=== PATIENT | male | born 1975 | race African-American/Black ===

== ENCOUNTER 2017-01-24 13:27 | Inpatient (IN) | payer OTHER ==
[2017-01-24 13:56] VITALS: BMI 33.0
--- NOTE | 2017-01-24 16:32 | HP ---
CIWA Score - CIWA Score Nausea/Vomitin Muscle Tremors: 3 Anxiety: 3 Agitation: 3 Paroxysmal Sweats: 2 Orientation: 0-Oriented Tacttile Disturbances: 2-Mild Itch/Numbness/Burn Auditory Disturbances: 2-Mild Harshness/Frighten Visual Disturbances: 1-Very Mild Sensitivity Headache: 2-Mild CIWA-Ar Total Score: 21 Admission ROS BHS - HPI Chief Complaint: i am here to stop drinking alcohol and xanax Allergies/Adverse Reactions: Allergies Allergy/AdvReac Type Severity Reaction Status Date / Time ibuprofen Allergy Intermediate Verified 01/24/17 15:57 Pork/Porcine Containing Allergy Intermediate Verified 01/24/17 15:57 Products History of Present Illness: this 41 years old male with alcohol and xanax dependence,seeking detox,mmtp 100 mgs/day, last medicated today tomorrow has bottle for sun 01/26/17 nicotine dependence longest period of sobriety 9 months last treatment for detox 09/15 arlin Exam Limitations: No Limitations - Ebola screening Have you traveled outside of the country in the last 21 days: No Have you had contact with anyone from an Ebola affected area: No Have you been sick,other than usual withdrawal symptoms: No Do you have a fever: No - Review of Systems Constitutional: Chills, Loss of Appetite, Malaise, Night Sweats, Changes in sleep, Weakness EENT: reports: Nose Congestion Respiratory: reports: No Symptoms reported Cardiac: reports: Palpitations GI: reports: Diarrhea, Nausea, Vomiting, Abdominal cramping : reports: No Symptoms Reported Integumentary: reports: Dryness Neuro: reports: Headache, Tremors Endocrine: reports: No Symptoms Reported Hematology: reports: No Symptoms Reported Psychiatric: reports: No Sypmtoms Reported (insomnia), Mood/Affect Appropiate Patient History - Patient Medical History Hx Anemia: No Hx Asthma: No Hx Chronic Obstructive Pulmonary Disease (COPD): No Hx Cancer: No Hx Cardiac Disorders: No Hx Congestive Heart Failure: No Hx Hypertension: No Hx Hypercholesterolemia: No Hx Pacemaker: No HX Cerebrovascular Accident: No Hx Seizures: No Hx Dementia: No Hx Diabetes: No Hx Gastrointestinal Disorders: Yes (NEXIUM) Hx Liver Disease: No Hx Genitourinary Disorders: No Hx Sexually Transmitted Disorders: No Hx Renal Disease (ESRD): No Hx Thyroid Disease: No Hx Human Immunodeficiency Virus (HIV): No (last 09/15 negative) Hx Hepatitis C: No Hx Depression: Yes (PROZAC) Hx Suicide Attempt: No Hx Bipolar Disorder: Yes (ABILIFY?) Hx Schizophrenia: No Other Medical History: no suicida,no homicidal - Patient Surgical History Past Surgical History: No Hx Neurologic Surgery: No Hx Cataract Extraction: No Hx Cardiac Surgery: No Hx Lung Surgery: No Hx Breast Surgery: No Hx Breast Biopsy: No Hx Abdominal Surgery: No Hx Appendectomy: No Hx Cholecystectomy: No Hx Genitourinary Surgery: No Hx Section: No Hx Orthopedic Surgery: No Anesthesia Reaction: No - PPD History Previous Implant?: Yes Documented Results: Negative w/proof Date: 07/16/15 Results: 0 mm PPD to be Administered?: Yes - Smoking Cessation Smoking history: Current every day smoker Have you smoked in the past 12 months: Yes Aproximately how many cigarettes per day: 10 Hx Chewing Tobacco Use: No Initiated information on smoking cessation: No 'Breaking Loose' booklet given: 01/24/17 - Substance & Tx. History Hx Alcohol Use: Yes Hx Substance Use: Yes Substance Use Type: Alcohol, Heroin, Tranquilizers - Substances Abused Alprazolam (Xanax) Route: Oral Frequency: Daily Amount used: 4mg Age of first use: 21 Date of Last Use: 01/23/17 Heroin Route: Inhalation Frequency: Daily Amount used: 6 bags Age of first use: 36 Date of Last Use: 01/23/17 Alcohol Route: Oral Frequency: Daily Amount used: liquor- 1 pint, beer- 2 32oz Age of first use: 21 Date of Last Use: 01/23/17 Family Disease History - Family Disease History Family Disease History: Diabetes: Grandparent (HTN,ALCOHOLIC), Heart Disease: Grandparent, Other: Grandparent, Father (ALCOHOLIC) Admission Physical Exam BHS - Vital Signs Vital Signs: Vital Signs - 24 hr 01/24/17 13:53 Temperature 98.8 F Pulse Rate 75 Respiratory 18 Rate Blood Pressure 160/106 - Physical General Appearance: Yes: Moderate Distress, Tremorous, Irritable, Sweating, Anxious HEENTM: Yes: Normal ENT Inspection, ELEAZAR, Pharynx Normal Respiratory: Yes: Lungs Clear, Normal Breath Sounds, No Respiratory Distress Neck: Yes: Within Normal Limits, Trachea in good position Breast: Yes: Within Normal Limits Cardiology: Yes: Within Normal Limits, Regular Rhythm, Regular Rate Abdominal: Yes: Within Normal Limits, Normal Bowel Sounds, Non Tender, Flat, Soft Genitourinary: Yes: Within Normal Limits Back: Yes: Muscle Spasm Musculoskeletal: Yes: full range of Motion, Back pain, Joint Stiffness Extremities: Yes: Tremors Neurological: Yes: Within Normal Limits, media center specialist II-XII NML intact, Fully Oriented, Alert, Motor Strength 5/5 Integumentary: Yes: Dry Lymphatic: Yes: Within Normal Limits - Diagnostic (1) Opioid dependence with withdrawal Current Visit: No Status: Acute (2) Uncomplicated sedative, hypnotic or anxiolytic withdrawal Current Visit: No Status: Acute (3) GERD (gastroesophageal reflux disease) Current Visit: No Status: Chronic Qualifiers: Esophagitis presence: without esophagitis Qualified Code(s): K21.9 - Gastro-esophageal reflux disease without esophagitis (4) Nicotine dependence Current Visit: No Status: Chronic Qualifiers: Nicotine product type: cigarettes Substance use status: uncomplicated Qualified Code(s): F17.210 - Nicotine dependence, cigarettes, uncomplicated (5) Methadone maintenance therapy patient Current Visit: Yes Status: Acute (6) Alcohol dependence with uncomplicated withdrawal Current Visit: Yes Status: Acute (7) Bipolar disorder with depression Current Visit: Yes Status: Acute Cleared for Admission S - Detox or Rehab [facility] Level of Care: Medically Managed Detox Regimen/Protocol: Valium [facility] Breath Alcohol Content Breath Alcohol Content: 0 Urine Drug Screen - Results Drug Screen Negative: No Urine Drug Screen Results: OPI-Opiates, BZO-Benzodiazepines, MTD-Methadone
[2017-01-24] MEDS ORDERED: MAG HYDROX/AL HYDROX/SIMETH 30 ML UNIT-DOSE CUP PO PRN (16:44)
[2017-01-24] MEDS ORDERED: MAGNESIUM CITRATE 300 ML BOTTLE PO PRN (16:44)
[2017-01-24] MEDS ORDERED: ACETAMINOPHEN 325 MG TABLET (FP) PO PRN (16:44)
[2017-01-24] MEDS ORDERED: LOPERAMIDE HCL 2 MG CAPSULE PO PRN (16:44)
[2017-01-24] MEDS ORDERED: P-EPHED 60MG/TRIPROLIDI 2.5MG TABLET PO PRN (16:44)
[2017-01-24] MEDS ORDERED: MENTHOL/PHENOL 1 EACH UD MM PRN (16:44)
[2017-01-24] MEDS ORDERED: guaiFENesin/D-METHORPHAN HB 10 ML UNIT-DOSE CUPS PO PRN (16:44)
[2017-01-24] MEDS ORDERED: diazePAM 5 MG TABLET PO ONE (16:44)
[2017-01-24] MEDS ORDERED: MAGNESIUM HYDROX 2400MG/30ML ORAL SUSPENSION 30 ML CUP PO PRN (16:44)
[2017-01-24] MEDS ORDERED: hydrOXYzine PAMOATE 25 MG CAPSULE (FP) PO PRN (16:44)
[2017-01-24] MEDS: NICOTINE 21 MG/24 HOURS TOPICAL PATCH TD SCH (17:58)
[2017-01-24] MEDS: diazePAM 5 MG TABLET PO SCH (22:30)
[2017-01-24] MEDS: THIAMINE HCL 100 MG TABLET (FP) PO SCH (22:30)
[2017-01-24] MEDS: diphenhydrAMINE HCL 50 MG CAPSULE PO PRN (22:30)
[2017-01-24] MEDS: FLUOCINONIDE 0.05% TOP OINT (60 GM TUBE) TP SCH (22:31)
[2017-01-25] MEDS ORDERED: METHADONE HCL 40 MG DISPERSABLE TABLET ONE (05:35)
[2017-01-25] MEDS ORDERED: METHADONE HCL 10 MG TABLET ONE (05:36)
[2017-01-25] MEDS ORDERED: METHADONE HCL 10 MG TABLET PO ONE (06:00)
[2017-01-25] MEDS ORDERED: METHADONE 80 MG, METHADONE 20 MG PO ONE (06:00)
[2017-01-25] MEDS: diazePAM 5 MG TABLET PO SCH ×3 (06:01→22:20)
[2017-01-25] MEDS: FLUOCINONIDE 0.05% TOP OINT (60 GM TUBE) TP SCH ×2 (09:21→22:19)
[2017-01-25 09:58] LABS: MCH 27.3 pg (25.7-33.7); MCHC 32.7 g/dl (32.0-35.9); MEAN CELL VOLUME 83.5 fl (80-96); MEAN PLT VOLUME 8.3 fl (7.5-11.1); PLATELET COUNT 233 K/MM3 (134-434); RDW 14.6 % (11.9-15.9); WHITE BLOOD COUNT 6.7 K/mm3 (4.0-10.0)
[2017-01-25 10:02] LABS: URINE APPEARANCE CLEAR; URINE BILIRUBIN NEGATIVE (NEGATIVE); URINE BLOOD NEGATIVE (NEGATIVE); URINE COLOR LTYELLOW; URINE GLUCOSE (UA) NEGATIVE (NEGATIVE); URINE KETONE NEGATIVE (NEGATIVE); URINE LEUK ESTERASE NEGATIVE (NEGATIVE); URINE NITRITE NEGATIVE (NEGATIVE); URINE PROTEIN NEGATIVE (NEGATIVE); URINE UROBILINOGEN NEGATIVE mg/dL (0.2-1.0)
[2017-01-25 10:27] LABS: ALBUMIN 3.7 g/dl (3.4-5.0); ALK PHOS 57 U/L (45-117); ANION GAP 6 (8-16); BILIRUBIN,TOTAL 0.4 mg/dL (0.2-1.0); CALCIUM 9.1 mg/dL (8.5-10.1); CO2 31 mmol/L (21-32); CREATININE 0.8 mg/dL (0.7-1.3); GLUCOSE,RANDOM 86 mg/dL (74-106); SGOT/AST 23 U/L (15-37); SGPT/ALT 30 U/L (12-78); TOT PROT 7.5 g/dl (6.4-8.2)
[2017-01-25] MEDS: PRENATAL VITAMINS W/ FOLIC ACID TABLET (FP) PO SCH (11:05)
[2017-01-25] MEDS: NICOTINE 21 MG/24 HOURS TOPICAL PATCH TD SCH (11:05)
[2017-01-25] MEDS: diazePAM 5 MG TABLET PO PRN ×2 (11:08→18:46)
--- NOTE | 2017-01-25 12:09 | PN ---
[facility] CIWA - CIWA Score Nausea/Vomitin Muscle Tremors: 3 Anxiety: 3 Agitation: 2 Paroxysmal Sweats: 1-Minimal Palms Moist Orientation: 0-Oriented Tacttile Disturbances: 1-Very Mild Itch/Numbness Auditory Disturbances: 1-Very Mild Visual Disturbances: 1-Very Mild Sensitivity Headache: 2-Mild CIWA-Ar Total Score: 17 S COWS - Scale Anxiety or Irritability: 2=Irritable/Anxious [facility] Progress Note (SOAP) Subjective: ALERT,IRRITABLE,ANXIOUS,INTERRUPTED SLEEP,PAIN IN THE BODY BACK Objective: 01/25/17 12:07 Vital Signs Temperature 97.9 F 01/25/17 10:00 Pulse Rate 80 01/25/17 10:00 Respiratory Rate 20 01/25/17 10:00 Blood Pressure 117/66 01/25/17 10:00 O2 Sat by Pulse Oximetry (%) EKG SINUS BRADYCARDIA 58/MIN,INVERTED T IN V2 AND V3 NO CHEST PAIN,NO SOB Laboratory Last Values WBC 6.7 K/mm3 (4.0-10.0) 01/25/17 07:50 RBC 4.92 M/mm3 (4.00-5.60) 01/25/17 07:50 Hgb 13.5 GM/dL (11.7-16.9) 01/25/17 07:50 Hct 41.1 % (35.4-49) 01/25/17 07:50 MCV 83.5 fl (80-96) 01/25/17 07:50 MCH 27.3 pg (25.7-33.7) 01/25/17 07:50 MCHC 32.7 g/dl (32.0-35.9) 01/25/17 07:50 RDW 14.6 % (11.9-15.9) 01/25/17 07:50 Plt Count 233 K/MM3 (134-434) D 01/25/17 07:50 MPV 8.3 fl (7.5-11.1) 01/25/17 07:50 Sodium 139 mmol/L (136-145) 01/25/17 07:50 Potassium 4.3 mmol/L (3.5-5.1) 01/25/17 07:50 Chloride 102 mmol/L (98-107) 01/25/17 07:50 Carbon Dioxide 31 mmol/L (21-32) 01/25/17 07:50 Anion Gap 6 (8-16) L 01/25/17 07:50 BUN 12 mg/dL (7-18) D 01/25/17 07:50 Creatinine 0.8 mg/dL (0.7-1.3) D 01/25/17 07:50 Creat Clearance w eGFR > 60 (>60) 01/25/17 07:50 Random Glucose 86 mg/dL (74-106) 01/25/17 07:50 Calcium 9.1 mg/dL (8.5-10.1) 01/25/17 07:50 Total Bilirubin 0.4 mg/dL (0.2-1.0) D 01/25/17 07:50 AST 23 U/L (15-37) D 01/25/17 07:50 ALT 30 U/L (12-78) 01/25/17 07:50 Alkaline Phosphatase 57 U/L (45-117) 01/25/17 07:50 Total Protein 7.5 g/dl (6.4-8.2) 01/25/17 07:50 Albumin 3.7 g/dl (3.4-5.0) 01/25/17 07:50 Urine Color Ltyellow 01/25/17 09:20 Urine Appearance Clear 01/25/17 09:20 Urine pH 5.0 (5.0-8.0) D 01/25/17 09:20 Urine Protein Negative (NEGATIVE) 01/25/17 09:20 Urine Glucose (UA) Negative (NEGATIVE) 01/25/17 09:20 Urine Ketones Negative (NEGATIVE) 01/25/17 09:20 Urine Blood Negative (NEGATIVE) 01/25/17 09:20 Urine Nitrite Negative (NEGATIVE) 01/25/17 09:20 Urine Bilirubin Negative (NEGATIVE) 01/25/17 09:20 Urine Urobilinogen Negative mg/dL (0.2-1.0) 01/25/17 09:20 Ur Leukocyte Esterase Negative (NEGATIVE) 01/25/17 09:20 RPR Titer Nonreactive (NONREACTIVE) 01/25/17 07:50 Assessment: 01/25/17 12:09 WITHDRAWAL SYMPTOM Plan: CONTINUE DETOX
[2017-01-25] MEDS: THIAMINE HCL 100 MG TABLET (FP) PO SCH (22:20)
[2017-01-25] MEDS: diphenhydrAMINE HCL 50 MG CAPSULE PO PRN (22:21)
[2017-01-26] MEDS: diazePAM 5 MG TABLET PO PRN ×3 (05:58→19:53)
--- NOTE | 2017-01-26 07:33 | CONSULT ---
[facility] Psychiatric Consult - Data Date of interview: 01/26/17 Admission source: [facility] Identifying data: Qasim is 41 years old male with no psychiatric hospitalization history intoxicated with: Alcohol, Heroin and Nicotine Substance Abuse History: - Smoking Cessation. Smoking history: Current every day smoker. Have you smoked in the past 12 months: Yes. Aproximately how many cigarettes per day: 10. Hx Chewing Tobacco Use: No. Initiated information on smoking cessation: No. 'Breaking Loose' booklet given: 01/24/17. - Substance & Tx. History. Hx Alcohol Use: Yes. Hx Substance Use: Yes. Substance Use Type : Alcohol, Heroin, Tranquilizers. - Substances Abused. Alprazolam (Xanax). Route: Oral. Frequency: Daily. Amount used: 4mg. Age of first use: 21. Date of Last Use: 01/23/17. Heroin. Route: Inhalation. Frequency: Daily. Amount used: 6 bags. Age of first use: 36. Date of Last Use: 01/23/17. Alcohol. Route: Oral. Frequency: Daily. Amount used: liquor- 1 pint, beer- 2 32oz. Age of first use: 21. Date of Last Use: 01/23/17 Medical History: GERD, mmtp Psychiatric History: Patient reprots history of depression and anxiety, as per computer there is a history of MDD nad Bipolar Disorder, history of taking Prozac 10mg p[oqd. Patient reports no history of psychiatric admissions, refusing to restart psychiatric medications Physical/Sexual Abuse/Trauma History: Denies Additional Comment: Observation. Detox Unit Care Protocol Mental Status Exam - Mental Status Exam Alert and Oriented to: Person Cognitive Function: Fair Patient Appearance: Unkempt Mood: Sad Affect: Flat Patient Behavior: Sedated Speech Pattern: Delayed Voice Loudness: Normal Thought Process: Goal Oriented Thought Disorder: Being Controlled Hallucinations: Denies Suicidal Ideation: Denies Homicidal Ideation: Denies Insight/Judgement: Fair Sleep: Difficulty falling asleep Appetite: Fair Muscle strength/Tone: Mild Hypotonicity Gait/Station: Normal Additional Comments: Observation. Detox Unit Care Protocol Psychiatric Findings - Problem List ([place] 1, 2,3) (1) Alcohol dependence with uncomplicated withdrawal Current Visit: Yes Status: Acute (2) Bipolar disorder with depression Current Visit: Yes Status: Suspected (3) Methadone maintenance therapy patient Current Visit: Yes Status: Acute (4) MDD (major depressive disorder) Current Visit: No Status: Suspected (5) Opioid dependence with withdrawal Current Visit: No Status: Acute (6) Uncomplicated sedative, hypnotic or anxiolytic withdrawal Current Visit: No Status: Acute (7) Nicotine dependence Current Visit: No Status: Chronic Qualifiers: Nicotine product type: cigarettes Substance use status: uncomplicated Qualified Code(s): F17.210 - Nicotine dependence, cigarettes, uncomplicated - Initial Treatment Plan Initial Treatment Plan: Observation. Detox Unit Care Protocol
[2017-01-26] MEDS ORDERED: METHADONE HCL 10 MG TABLET PO SCH (09:00)
[2017-01-26] MEDS ORDERED: METHADONE 80 MG, METHADONE 20 MG PO ONE (09:30)
[2017-01-26] MEDS ORDERED: METHADONE HCL 40 MG DISPERSABLE TABLET ONE (09:39)
[2017-01-26] MEDS ORDERED: METHADONE HCL 10 MG TABLET ONE (09:40)
[2017-01-26] MEDS: diazePAM 5 MG TABLET PO SCH ×2 (10:49→22:09)
[2017-01-26] MEDS: NICOTINE 21 MG/24 HOURS TOPICAL PATCH TD SCH (10:49)
[2017-01-26] MEDS: PRENATAL VITAMINS W/ FOLIC ACID TABLET (FP) PO SCH (10:50)
[2017-01-26] MEDS: FLUOCINONIDE 0.05% TOP OINT (60 GM TUBE) TP SCH ×2 (10:50→22:09)
--- NOTE | 2017-01-26 11:00 | PN ---
S CIWA - CIWA Score Nausea/Vomitin Muscle Tremors: 3 Anxiety: 3 Agitation: 2 Paroxysmal Sweats: 1-Minimal Palms Moist Orientation: 0-Oriented Tacttile Disturbances: 1-Very Mild Itch/Numbness Auditory Disturbances: 1-Very Mild Visual Disturbances: 1-Very Mild Sensitivity Headache: 2-Mild CIWA-Ar Total Score: 17 S Progress Note (SOAP) Subjective: ALERT,IRRITABLE,ANXIOUS,INTERRUPTED SLEEP,TREMOR Objective: 01/26/17 10:59 Vital Signs Temperature 96.4 F L 01/26/17 10:00 Pulse Rate 71 01/26/17 10:00 Respiratory Rate 18 01/26/17 10:00 Blood Pressure 119/79 01/26/17 10:00 O2 Sat by Pulse Oximetry (%) Laboratory Last Values WBC 6.7 K/mm3 (4.0-10.0) 01/25/17 07:50 RBC 4.92 M/mm3 (4.00-5.60) 01/25/17 07:50 Hgb 13.5 GM/dL (11.7-16.9) 01/25/17 07:50 Hct 41.1 % (35.4-49) 01/25/17 07:50 MCV 83.5 fl (80-96) 01/25/17 07:50 MCH 27.3 pg (25.7-33.7) 01/25/17 07:50 MCHC 32.7 g/dl (32.0-35.9) 01/25/17 07:50 RDW 14.6 % (11.9-15.9) 01/25/17 07:50 Plt Count 233 K/MM3 (134-434) D 01/25/17 07:50 MPV 8.3 fl (7.5-11.1) 01/25/17 07:50 Sodium 139 mmol/L (136-145) 01/25/17 07:50 Potassium 4.3 mmol/L (3.5-5.1) 01/25/17 07:50 Chloride 102 mmol/L (98-107) 01/25/17 07:50 Carbon Dioxide 31 mmol/L (21-32) 01/25/17 07:50 Anion Gap 6 (8-16) L 01/25/17 07:50 BUN 12 mg/dL (7-18) D 01/25/17 07:50 Creatinine 0.8 mg/dL (0.7-1.3) D 01/25/17 07:50 Creat Clearance w eGFR > 60 (>60) 01/25/17 07:50 Random Glucose 86 mg/dL (74-106) 01/25/17 07:50 Calcium 9.1 mg/dL (8.5-10.1) 01/25/17 07:50 Total Bilirubin 0.4 mg/dL (0.2-1.0) D 01/25/17 07:50 AST 23 U/L (15-37) D 01/25/17 07:50 ALT 30 U/L (12-78) 01/25/17 07:50 Alkaline Phosphatase 57 U/L (45-117) 01/25/17 07:50 Total Protein 7.5 g/dl (6.4-8.2) 01/25/17 07:50 Albumin 3.7 g/dl (3.4-5.0) 01/25/17 07:50 Urine Color Ltyellow 01/25/17 09:20 Urine Appearance Clear 01/25/17 09:20 Urine pH 5.0 (5.0-8.0) D 01/25/17 09:20 Ur Specific [place] 1.020 (1.005-1.025) 01/25/17 09:20 Urine Protein Negative (NEGATIVE) 01/25/17 09:20 Urine Glucose (UA) Negative (NEGATIVE) 01/25/17 09:20 Urine Ketones Negative (NEGATIVE) 01/25/17 09:20 Urine Blood Negative (NEGATIVE) 01/25/17 09:20 Urine Nitrite Negative (NEGATIVE) 01/25/17 09:20 Urine Bilirubin Negative (NEGATIVE) 01/25/17 09:20 Urine Urobilinogen Negative mg/dL (0.2-1.0) 01/25/17 09:20 Ur Leukocyte Esterase Negative (NEGATIVE) 01/25/17 09:20 RPR Titer Nonreactive (NONREACTIVE) 01/25/17 07:50 Assessment: 01/26/17 10:59 WITHDRAWAL SYMPTOM Plan: CONTINUE DETOX
[2017-01-26] MEDS ORDERED: NICOTINE POLACRILEX 2 MG GUM BUC PRN (13:31)
--- NOTE | 2017-01-26 19:06 | EKG ---
Test Reason : Blood Pressure : / mmHG Vent. Rate : 058 BPM Atrial Rate : 058 BPM P-R Int : 196 ms QRS Dur : 104 ms QT Int : 472 ms P-R-T Axes : 055 039 028 degrees QTc Int : 463 ms SINUS BRADYCARDIA T WAVE ABNORMALITY, CONSIDER ANTERIOR ISCHEMIA PROLONGED QT ABNORMAL ECG NO PREVIOUS ECGS AVAILABLE Confirmed by LONNIE RENDON MD ([id number]) on 01/26/2017 7:06:23 PM Referred By: Confirmed By:LONNIE RENDON MD
[2017-01-26] MEDS: diphenhydrAMINE HCL 50 MG CAPSULE PO PRN (22:09)
[2017-01-26] MEDS: THIAMINE HCL 100 MG TABLET (FP) PO SCH (22:09)
[2017-01-27] MEDS ORDERED: METHADONE HCL 40 MG DISPERSABLE TABLET ONE (04:08)
[2017-01-27] MEDS ORDERED: METHADONE HCL 10 MG TABLET ONE (04:09)
[2017-01-27] MEDS: METHADONE 80 MG, METHADONE 20 MG PO SCH (05:38)
[2017-01-27] MEDS: diazePAM 5 MG TABLET PO PRN ×2 (05:42→16:35)
[2017-01-27] MEDS: PRENATAL VITAMINS W/ FOLIC ACID TABLET (FP) PO SCH (10:18)
[2017-01-27] MEDS: NICOTINE 21 MG/24 HOURS TOPICAL PATCH TD SCH (10:18)
[2017-01-27] MEDS: diazePAM 5 MG TABLET PO SCH ×2 (10:18→22:06)
[2017-01-27] MEDS: FLUOCINONIDE 0.05% TOP OINT (60 GM TUBE) TP SCH ×2 (10:19→22:32)
--- NOTE | 2017-01-27 11:39 | PN ---
S Progress Note (SOAP) Subjective: ALERT,IRRITABLE,ANXIOUS,INTERRUPTED SLEEP Objective: 01/27/17 11:38 Vital Signs Temperature 99.7 F H 01/27/17 10:25 Pulse Rate 82 01/27/17 10:25 Respiratory Rate 18 01/27/17 10:25 Blood Pressure 107/66 01/27/17 10:25 O2 Sat by Pulse Oximetry (%) Assessment: 01/27/17 11:38 WITHDRAWAL SYMPTOM Plan: CONTINUE DETOX,DISCHARGE IN AM
[2017-01-27] MEDS: diphenhydrAMINE HCL 50 MG CAPSULE PO PRN (22:06)
[2017-01-27] MEDS: THIAMINE HCL 100 MG TABLET (FP) PO SCH (22:06)
[2017-01-28] MEDS ORDERED: METHADONE HCL 40 MG DISPERSABLE TABLET ONE (04:22)
[2017-01-28] MEDS ORDERED: METHADONE HCL 10 MG TABLET ONE (04:22)
[2017-01-28] MEDS: METHADONE 80 MG, METHADONE 20 MG PO SCH (05:37)
[2017-01-28 06:35] VITALS: BP 102/64; PULSE 66; TEMP 97.5
[2017-01-28] MEDS: PRENATAL VITAMINS W/ FOLIC ACID TABLET (FP) PO SCH (09:14)
[2017-01-28] MEDS: NICOTINE 21 MG/24 HOURS TOPICAL PATCH TD SCH (09:14)
--- NOTE | 2017-01-28 09:27 | PN ---
[facility] Progress Note (SOAP) Subjective: no complaints Objective: 01/28/17 09:24 Vital Signs - 8 hr 01/28/17 01/28/17 03:30 06:34 Temperature 97.5 F L Pulse Rate 66 Respiratory 18 18 Rate Blood Pressure 102/64 Laboratory Tests 01/25/17 01/25/17 01/25/17 07:50 07:50 07:50 WBC 6.7 RBC 4.92 Hgb 13.5 Hct 41.1 MCV 83.5 MCH 27.3 MCHC 32.7 RDW 14.6 Plt Count 233 D MPV 8.3 Sodium 139 Potassium 4.3 Chloride 102 Carbon Dioxide 31 Anion Gap 6 L BUN 12 D Creatinine 0.8 D Creat Clearance w eGFR > 60 Random Glucose 86 Calcium 9.1 Total Bilirubin 0.4 D AST 23 D ALT 30 Alkaline Phosphatase 57 Total Protein 7.5 Albumin 3.7 Urine Color Urine Appearance Urine pH Ur Specific [place] Urine Protein Urine Glucose (UA) Urine Ketones Urine Blood Urine Nitrite Urine Bilirubin Urine Urobilinogen Ur Leukocyte Esterase RPR Titer Nonreactive 01/25/17 09:20 WBC RBC Hgb Hct MCV MCH MCHC RDW Plt Count MPV Sodium Potassium Chloride Carbon Dioxide Anion Gap BUN Creatinine Creat Clearance w eGFR Random Glucose Calcium Total Bilirubin AST ALT Alkaline Phosphatase Total Protein Albumin Urine Color Ltyellow Urine Appearance Clear Urine pH 5.0 D Ur Specific [place] 1.020 Urine Protein Negative Urine Glucose (UA) Negative Urine Ketones Negative Urine Blood Negative Urine Nitrite Negative Urine Bilirubin Negative Urine Urobilinogen Negative Ur Leukocyte Esterase Negative RPR Titer Assessment: 01/28/17 09:25 completed detxo, medically stable Plan: d/c today, f/u with PCP, cont MMTP 100mg
--- NOTE | 2017-01-28 09:30 | DS ---
[facility] Detox Discharge Summary Admission Date: 01/24/17 Discharge Date: 01/28/17 - History Present History: Alcohol Dependence, Sedative Dependence Pertinent Past History: nicotine dependence, insomnia, anxiety, depression - Physical Exam Results Vital Signs: Vital Signs Temperature 97.5 F L 01/28/17 06:34 Pulse Rate 66 01/28/17 06:34 Respiratory Rate 18 01/28/17 06:34 Blood Pressure 102/64 01/28/17 06:34 O2 Sat by Pulse Oximetry (%) Pertinent Admission Physical Exam Findings: Yes - Treatment Hospital Course: Detox Protocol Followed, Detoxed Safely, Responded well, Discharged Condition Good, Rehab Referral Accepted - Medication Discharge Medications: Ambulatory Orders Fluoxetine HCl [Prozac -] 10 mg PO DAILY #30 capsule 07/16/15 - Diagnosis (1) Alcohol dependence with uncomplicated withdrawal Current Visit: Yes Status: Chronic (2) Methadone maintenance therapy patient Current Visit: Yes Status: Chronic (3) Uncomplicated sedative, hypnotic or anxiolytic withdrawal Current Visit: No Status: Acute (4) GERD (gastroesophageal reflux disease) Current Visit: No Status: Chronic Qualifiers: Esophagitis presence: without esophagitis Qualified Code(s): K21.9 - Gastro-esophageal reflux disease without esophagitis (5) Nicotine dependence Current Visit: Yes Status: Chronic Qualifiers: Nicotine product type: cigarettes Substance use status: uncomplicated Qualified Code(s): F17.210 - Nicotine dependence, cigarettes, uncomplicated (6) MDD (major depressive disorder) Current Visit: No Status: Suspected - AMA Did Patient Leave Against Medical Advice: No
[2017-01-28] MEDS ORDERED: diazePAM 5 MG TABLET PO SCH (10:00)
== END 2017-01-28 09:40 | disposition home or self-care (01) | DRG 773 ==
LOC: YASAS 13:27 → Y6N 16:12
PROVIDERS: ADMIT Internal Medicine Addiction Medicine; ATTEND Internal Medicine Addiction Medicine
PROC: HZ2ZZZZ Detoxification Services for Substance Abuse Treatment (ICD-10-PCS; principal; 2017-01-24)
DX: F11.23 Opioid dependence with withdrawal (principal); F13.230 Sedative, hypnotic or anxiolytic dependence with withdrawal, uncomplicated; F10.230 Alcohol dependence with withdrawal, uncomplicated; F17.210 Nicotine dependence, cigarettes, uncomplicated; F33.9 Major depressive disorder, recurrent, unspecified; R00.2 Palpitations; K21.9 Gastro-esophageal reflux disease without esophagitis; Z88.6 Allergy status to analgesic agent; Z91.018 Allergy to other foods
CPT/HCPCS: 36415; 80053; 81003; 85027; 86593; 93005; 93010

== ENCOUNTER 2017-06-17 15:44 | Inpatient (IN) | payer OTHER ==
[2017-06-17 19:13] VITALS: BMI 38.1
--- NOTE | 2017-06-17 20:26 | HP ---
COWS - Scale Resting Pulse: 0= [place] 80 or Below Sweatin=Flushed/Facial Moisture Restless Observation: 0= Sits Still Pupil Size: 1= Pupils >than Normal Bone or Joint Aches: 2= Severe Diffuse Aches Runny Nose/ Eye Tearin= Runny Nose/Eyes GI Upset > 30mins: 2= Nausea/Diarrhea (nausea) Tremor Observation: 2= Slight Tremor Visible Yawning Observation: 1= 1-2x During Session Anxiety or Irritability: 4=Extreme Anxiety Goose Flesh Skin: 3=Piloerection COWS Score: 19 Admission [facility] Chief Complaint: Heroin and xanax withdrawal symptoms Allergies/Adverse Reactions: Allergies Allergy/AdvReac Type Severity Reaction Status Date / Time ibuprofen Allergy Intermediate Verified 01/24/17 15:57 Pork/Porcine Containing Allergy Intermediate Verified 01/24/17 15:57 Products History of Present Illness: 42 years old male with a five years history of heroin and xanax dependence is seeking admission to detox. Patient has been in previous detox and reports insignificant period of sobriety. He has medical history of GERD, back pain and depression. Patient denies suicidal ideation at this time. Exam Limitations: No Limitations - Ebola screening Have you traveled outside of the country in the last 21 days: No Have you had contact with anyone from an Ebola affected area: No Have you been sick,other than usual withdrawal symptoms: No Do you have a fever: No - Review of Systems Constitutional: Loss of Appetite, Malaise, Night Sweats, Changes in sleep EENT: reports: Nose Congestion Respiratory: reports: No Symptoms reported Cardiac: reports: No Symptoms Reported GI: reports: Nausea, Poor Appetite, Poor Fluid Intake, Abdominal cramping : reports: No Symptoms Reported Musculoskeletal: reports: Back Pain, Muscle Pain, Muscle Weakness Integumentary: reports: Dryness, Flushing Neuro: reports: Tingling, Tremors Endocrine: reports: No Symptoms Reported Hematology: reports: No Symptoms Reported Psychiatric: reports: Orientated x3, Agitated, Anxious, Depressed Other Systems: Reviewed and Negative Patient History - Patient Medical History Hx Anemia: No Hx Asthma: No Hx Chronic Obstructive Pulmonary Disease (COPD): No Hx Cancer: No Hx Cardiac Disorders: No Hx Congestive Heart Failure: No Hx Hypertension: No Hx Hypercholesterolemia: No Hx Pacemaker: No HX Cerebrovascular Accident: No Hx Seizures: No Hx Dementia: No Hx Diabetes: No Hx Gastrointestinal Disorders: Yes (GERD) Hx Liver Disease: No Hx Genitourinary Disorders: No Hx Sexually Transmitted Disorders: No Hx Renal Disease (ESRD): No Hx Thyroid Disease: No Hx Human Immunodeficiency Virus (HIV): No (Negative August 2016) Hx Hepatitis C: No Hx Depression: Yes (PROZAC) Hx Suicide Attempt: No (Denies suicidal ideation) Hx Bipolar Disorder: Yes (ABILIFY?) Hx Schizophrenia: No - Patient Surgical History Past Surgical History: No Hx Neurologic Surgery: No Hx Cataract Extraction: No Hx Cardiac Surgery: No Hx Lung Surgery: No Hx Abdominal Surgery: No Hx Appendectomy: No Hx Cholecystectomy: No Hx Genitourinary Surgery: No Hx Section: No Hx Orthopedic Surgery: No Anesthesia Reaction: No - PPD History Documented Results: Negative w/proof Implanted On Prior [facility] Admission?: Yes Date: 01/26/17 Results: 0 mm PPD to be Administered?: No - Reproductive History Patient is a Female of Child Bearing Age (11 -55 yrs old): No (MALE) - Smoking Cessation Smoking history: Current every day smoker Have you smoked in the past 12 months: Yes Aproximately how many cigarettes per day: 10 Hx Chewing Tobacco Use: No Initiated information on smoking cessation: Yes 'Breaking Loose' booklet given: 06/17/17 - Substance & Tx. History Hx Alcohol Use: No Hx Substance Use: Yes Substance Use Type: Heroin Hx Substance Use Treatment: Yes ([facility] DEC[facility] 2016) - Substances Abused Heroin Route: Inhalation Frequency: Daily Amount used: 18 BAGS Age of first use: 37 Date of Last Use: 06/16/17 Alprazolam (Xanax) Route: Oral Frequency: Daily Amount used: 10 MG DAILY Age of first use: 33 Date of Last Use: 06/16/17 Family Disease History - Family Disease History Family Disease History: Diabetes: Grandparent (HTN,ALCOHOLIC), Heart Disease: Grandparent, Other: Grandparent, Father (ALCOHOLIC, ARTHRITIS) Admission Physical Exam S - Vital Signs Vital Signs: Vital Signs - 24 hr 06/17/17 19:11 Temperature 97.9 F Pulse Rate 77 Respiratory 20 Rate Blood Pressure 149/80 - Physical General Appearance: Yes: Moderate Distress, Tremorous, Irritable, Sweating, Anxious HEENTM: Yes: EOMI, ELEAZAR, Nasal Congestion, Other (Missing upper and lower teeth) Respiratory: Yes: Lungs Clear, Normal Breath Sounds, No Respiratory Distress Neck: Yes: Supple Breast: Yes: Breast Exam Deferred Cardiology: Yes: Regular Rhythm, Regular Rate, S1, S2 Abdominal: Yes: Within Normal Limits Genitourinary: Yes: Within Normal Limits Back: Yes: Muscle Spasm Extremities: Yes: Tremors Integumentary: Yes: Dry Lymphatic: Yes: Within Normal Limits - Diagnostic (1) Opioid dependence with withdrawal Current Visit: Yes Status: Chronic (2) Depression Current Visit: Yes Status: Chronic (3) Uncomplicated sedative, hypnotic or anxiolytic withdrawal Current Visit: Yes Status: Chronic (4) GERD (gastroesophageal reflux disease) Current Visit: Yes Status: Chronic Qualifiers: Esophagitis presence: without esophagitis Qualified Code(s): K21.9 - Gastro -esophageal reflux disease without esophagitis (5) Nicotine dependence Current Visit: Yes Status: Chronic Qualifiers: Nicotine product type: cigarettes Substance use status: uncomplicated Qualified Code(s): F17.210 - Nicotine dependence, cigarettes, uncomplicated Cleared for Admission [facility] - Detox or Rehab [facility] Level of Care: Medically Managed Detox Regimen/Protocol: Methadone/Valium [facility] Breath Alcohol Content Breath Alcohol Content: 0 Urine Drug Screen - Results Drug Screen Negative: No Urine Drug Screen Results: OPI-Opiates, BZO-Benzodiazepines
[2017-06-17] MEDS ORDERED: MAGNESIUM CITRATE 300 ML BOTTLE PO PRN (20:43)
[2017-06-17] MEDS ORDERED: P-EPHED 60MG/TRIPROLIDI 2.5MG TABLET PO PRN (20:43)
[2017-06-17] MEDS ORDERED: LOPERAMIDE HCL 2 MG CAPSULE PO PRN (20:43)
[2017-06-17] MEDS ORDERED: guaiFENesin/D-METHORPHAN HB 10 ML UNIT-DOSE CUPS PO PRN (20:43)
[2017-06-17] MEDS ORDERED: diazePAM 5 MG TABLET PO ONE (20:43)
[2017-06-17] MEDS ORDERED: MENTHOL/PHENOL 1 EACH UD MM PRN (20:43)
[2017-06-17] MEDS ORDERED: MAG HYDROX/AL HYDROX/SIMETH 30 ML UNIT-DOSE CUP PO PRN (20:43)
[2017-06-17] MEDS ORDERED: METHADONE HCL 10 MG TABLET (FOR DETOX USE ONLY) PO ONE ×2 (20:43→23:00)
[2017-06-17] MEDS ORDERED: MAGNESIUM HYDROX 2400MG/30ML ORAL SUSPENSION 30 ML CUP PO PRN (20:43)
[2017-06-17] MEDS ORDERED: ACETAMINOPHEN 325 MG TABLET (FP) PO PRN (20:43)
[2017-06-17] MEDS ORDERED: METHADONE HCL 10 MG TABLET (FOR DETOX USE ONLY) ONE (23:54)
[2017-06-17] MEDS: diazePAM 5 MG TABLET PO SCH (23:58)
[2017-06-17] MEDS: THIAMINE HCL 100 MG TABLET (FP) PO SCH (23:58)
[2017-06-18] MEDS: diazePAM 5 MG TABLET PO SCH ×3 (05:22→21:48)
--- NOTE | 2017-06-18 09:20 | PN ---
S Progress Note Note: PT STATES WAS STARTED ON PREDNISONE 10 MG PO DAILY FOR 5 DAYS FOR C/O DRY SCALY PEELING RASH ON BOTH HANDS. LAST DOSE WAS 06/17/17. PLAN: PREDNISONE 10 MG PO DAILY X 4 MORE DAYS REORDERED.
--- NOTE | 2017-06-18 09:26 | PN ---
[facility] CIWA - CIWA Score Nausea/Vomitin-No Nausea/No Vomiting Muscle Tremors: 4-Moderate,w/Arms Extend Anxiety: 4-Mod. Anxious/Guarded Agitation: 4-Moderately Restless Paroxysmal Sweats: 2 Orientation: 1-Uncertain about Date Tacttile Disturbances: 3-Moderate Itch/Numb/Burn Auditory Disturbances: 0-None Visual Disturbances: 0-None Headache: 0-None Present CIWA-Ar Total Score: 18 [facility] COWS - Scale Resting Pulse: 0= [place] 80 or Below Sweatin= Chills/Flushing Restless Observation: 3= Extraneous Movement Pupil Size: 2= Moderately Dilated Bone or Joint Aches: 4=Acute Joint/Muscle Pain Runny Nose/ Eye Tearin= Nasal Congestion GI Upset > 30mins: 0= None Tremor Observation of Outstretched Hands: 2= Slight Tremor Visible Yawning Observation: 1= 1-2x During Session Anxiety or Irritability: 2=Irritable/Anxious Goose Flesh Skin: 0=Smooth Skin COWS Score: 16 [facility] Progress Note (SOAP) Subjective: ANXIETY,SWEATS,MUSCLE ACHE,HOT/COLD CHILLS, TREMORS. RASH ON BOTH HANDS--ON PREDNISONE. Objective: 06/18/17 09:25 Vital Signs Temperature 98.3 F 06/18/17 09:10 Pulse Rate 80 06/18/17 09:10 Respiratory Rate 18 06/18/17 09:10 Blood Pressure 121/80 06/18/17 09:10 O2 Sat by Pulse Oximetry (%) Laboratory Last Values WBC 6.9 K/mm3 (4.0-10.0) 06/18/17 07:00 RBC 4.65 M/mm3 (4.00-5.60) 06/18/17 07:00 Hgb 12.4 GM/dL (11.7-16.9) 06/18/17 07:00 Hct 39.3 % (35.4-49) 06/18/17 07:00 MCV 84.4 fl (80-96) 06/18/17 07:00 MCH 26.6 pg (25.7-33.7) 06/18/17 07:00 MCHC 31.5 g/dl (32.0-35.9) L 06/18/17 07:00 RDW 14.9 % (11.9-15.9) 06/18/17 07:00 Plt Count 258 K/MM3 (134-434) 06/18/17 07:00 MPV 8.0 fl (7.5-11.1) 06/18/17 07:00 Sodium 141 mmol/L (136-145) 06/18/17 07:00 Potassium 3.8 mmol/L (3.5-5.1) 06/18/17 07:00 Chloride 101 mmol/L (98-107) 06/18/17 07:00 OTHER LAB RESULTS PENDING Assessment: 06/18/17 09:25 WITHDRAWAL SX Plan: CONTINUE DETOX PREDNISONE REORDERED.
[2017-06-18] MEDS ORDERED: METHADONE HCL 10 MG TABLET (FOR DETOX USE ONLY) PO SCH (10:00)
[2017-06-18 10:50] LABS: HEMATOCRIT 39.3 % (35.4-49); HEMOGLOBIN 12.4 GM/dL (11.7-16.9); MCH 26.6 pg (25.7-33.7); MCHC 31.5 g/dl (32.0-35.9); MEAN CELL VOLUME 84.4 fl (80-96); PLATELET COUNT 258 K/MM3 (134-434); RBC 4.65 M/mm3 (4.00-5.60); RDW 14.9 % (11.9-15.9); WHITE BLOOD COUNT 6.9 K/mm3 (4.0-10.0)
[2017-06-18] MEDS: PRENATAL VITAMINS W/ FOLIC ACID TABLET (FP) PO SCH (10:50)
[2017-06-18] MEDS: diazePAM 5 MG TABLET PO PRN (10:50)
[2017-06-18] MEDS: NICOTINE 14 MG/24 HOURS TOPICAL PATCH TD SCH (10:53)
[2017-06-18 10:56] LABS: CHLORIDE 101 mmol/L (98-107); POTASSIUM 3.8 mmol/L (3.5-5.1); SODIUM 141 mmol/L (136-145)
[2017-06-18 11:13] LABS: ALBUMIN 3.3 g/dl (3.4-5.0); ALK PHOS 46 U/L (45-117); ANION GAP 9 (8-16); BILIRUBIN,TOTAL 0.3 mg/dL (0.2-1.0); BLOOD UREA NITROGEN 13 mg/dL (7-18); CALCIUM 8.8 mg/dL (8.5-10.1); CO2 31 mmol/L (21-32); CREATININE 0.8 mg/dL (0.7-1.3); GLUCOSE,RANDOM 92 mg/dL (74-106); SGOT/AST 18 U/L (15-37); SGPT/ALT 28 U/L (12-78); TOT PROT 6.8 g/dl (6.4-8.2)
[2017-06-18] MEDS: predniSONE 10 MG TABLET (UD) PO SCH (11:36)
[2017-06-18] MEDS: PANTOPRAZOLE 40 MG TABLET (FP) PO SCH (12:24)
[2017-06-18] MEDS: NICOTINE POLACRILEX 2 MG GUM BC PRN ×2 (12:24→18:09)
--- NOTE | 2017-06-18 12:35 | EKG ---
Test Reason : Blood Pressure : / mmHG Vent. Rate : 067 BPM Atrial Rate : 067 BPM P-R Int : 174 ms QRS Dur : 098 ms QT Int : 416 ms P-R-T Axes : 070 058 034 degrees QTc Int : 439 ms NORMAL SINUS RHYTHM NORMAL ECG WHEN COMPARED WITH ECG OF 24-JAN-2017 16:47, T WAVE INVERSION NO LONGER EVIDENT IN ANTERIOR LEADS Confirmed by VIDAL DOWD, REEMA ([id number]) on 06/18/2017 12:35:12 PM Referred By: Confirmed By:REEMA DRAKE MD
--- NOTE | 2017-06-18 14:19 | CONSULT ---
[facility] Psychiatric Consult - Data Date of interview: 06/18/17 Admission source: [facility] Identifying data: Pt is a 42 year old male, single, without kids, unemployed and on welfare. This is one of multiple admissions for patient. Pt. admitted to detox for heroin and benzodizepine dependence. Substance Abuse History: Following information confirmed with Mr. Quiles: Smoking Cessation. Smoking history: Current every day smoker. Have you smoked in the past 12 months: Yes. Aproximately how many cigarettes per day: 10. Hx Chewing Tobacco Use: No. Initiated information on smoking cessation: Yes. ' Breaking Loose' booklet given: 06/17/17. - Substance & Tx. History. Hx Alcohol Use: No. Hx Substance Use: Yes. Substance Use Type: Heroin. Hx Substance Use Treatment: Yes ([facility] DEC[facility]BER 2016). - Substances Abused. Heroin. Route: Inhalation. Frequency: Daily. Amount used: 18 BAGS. Age of first use: 37. Date of Last Use: 06/16/17. Alprazolam (Xanax). Route: Oral. Frequency: Daily. Amount used: 10 MG DAILY. Age of first use: 33. Date of Last Use: 06/16/17 Medical History: [place] Psychiatric History: Pt. denies h/o psychiatric hospitalization and suicide attempts. States he used to see a psychiatrist in [place] but the clinic was closed and no longer has a psychiatrist. Reports a diagnosis of MDD. States he was prescribed prozac 10mg po daily but has not taken it in over one month. Pt. refuses to start prozac at this time. Physical/Sexual Abuse/Trauma History: Denies. Mental Status Exam - Mental Status Exam Alert and Oriented to: Time, Place, Person Cognitive Function: Good Patient Appearance: Unkempt Mood: Euthymic Affect: Mood Congruent Patient Behavior: Guarded, Cooperative Speech Pattern: Delayed Voice Loudness: Moderately Soft/Quiet Thought Process: Goal Oriented Thought Disorder: Not Present Hallucinations: Denies Suicidal Ideation: Denies Homicidal Ideation: Denies Insight/Judgement: Poor Sleep: Poorly Appetite: Fair Muscle strength/Tone: Normal Gait/Station: Normal Psychiatric Findings - Problem List ([place] 1, 2,3) (1) Opioid dependence with withdrawal Current Visit: Yes Status: Acute (2) Uncomplicated sedative, hypnotic or anxiolytic withdrawal Current Visit: Yes Status: Acute (3) MDD (major depressive disorder) Current Visit: No Status: Chronic Comment: Self reports. (4) Nicotine dependence Current Visit: Yes Status: Acute Qualifiers: Nicotine product type: cigarettes Substance use status: uncomplicated Qualified Code(s): F17.210 - Nicotine dependence, cigarettes, uncomplicated (5) Insomnia Current Visit: Yes Status: Acute - Initial Treatment Plan Initial Treatment Plan: Psychoeducation provided. Detoxification in progress. Seroquel 50mg qhs ordered for insomnia. Pt. reports favorable effect from previously taking seroquel. Benefits and side effects discussed. Will continue to monitor patient.
[2017-06-18] MEDS: QUEtiapine FUMARATE 50 MG TABLET PO SCH (21:48)
[2017-06-18] MEDS: THIAMINE HCL 100 MG TABLET (FP) PO SCH (21:48)
[2017-06-19 08:25] LABS: URINE APPEARANCE CLEAR; URINE BILIRUBIN NEGATIVE (NEGATIVE); URINE BLOOD NEGATIVE (NEGATIVE); URINE COLOR STRAW; URINE GLUCOSE (UA) NEGATIVE (NEGATIVE); URINE KETONE NEGATIVE (NEGATIVE); URINE LEUK ESTERASE NEGATIVE (NEGATIVE); URINE NITRITE NEGATIVE (NEGATIVE); URINE PROTEIN NEGATIVE (NEGATIVE); URINE UROBILINOGEN NEGATIVE mg/dL (0.2-1.0)
[2017-06-19] MEDS: PRENATAL VITAMINS W/ FOLIC ACID TABLET (FP) PO SCH (10:40)
[2017-06-19] MEDS: METHADONE HCL 5 MG TABLET (FOR DETOX USE ONLY) PO SCH (10:40)
[2017-06-19] MEDS: diazePAM 5 MG TABLET PO SCH ×2 (10:41→22:02)
[2017-06-19] MEDS: NICOTINE 14 MG/24 HOURS TOPICAL PATCH TD SCH (10:41)
[2017-06-19] MEDS: PANTOPRAZOLE 40 MG TABLET (FP) PO SCH (10:41)
[2017-06-19] MEDS: predniSONE 10 MG TABLET (UD) PO SCH (11:21)
[2017-06-19] MEDS: NICOTINE POLACRILEX 2 MG GUM BC PRN ×2 (12:35→19:51)
--- NOTE | 2017-06-19 13:22 | PN ---
[facility] CIWA - CIWA Score Nausea/Vomitin-No Nausea/No Vomiting Muscle Tremors: 4-Moderate,w/Arms Extend Anxiety: 4-Mod. Anxious/Guarded Agitation: 4-Moderately Restless Paroxysmal Sweats: 1-Minimal Palms Moist Orientation: 0-Oriented Tacttile Disturbances: 3-Moderate Itch/Numb/Burn Auditory Disturbances: 0-None Visual Disturbances: 0-None Headache: 0-None Present CIWA-Ar Total Score: 16 [facility] COWS - Scale Resting Pulse: 0= [place] 80 or Below Sweatin= Chills/Flushing Restless Observation: 3= Extraneous Movement Pupil Size: 0= Normal to Room Light Bone or Joint Aches: 4=Acute Joint/Muscle Pain Runny Nose/ Eye Tearin= Nasal Congestion GI Upset > 30mins: 1= Stomach Cramp Tremor Observation of Outstretched Hands: 2= Slight Tremor Visible Yawning Observation: 1= 1-2x During Session Anxiety or Irritability: 2=Irritable/Anxious Goose Flesh Skin: 0=Smooth Skin COWS Score: 15 [facility] Progress Note (SOAP) Subjective: ANXIETY,SWEATS,HOT/COLD CHILLS Objective: 06/19/17 13:22 Vital Signs Temperature 96.9 F L 06/19/17 09:43 Pulse Rate 74 06/19/17 09:43 Respiratory Rate 18 06/19/17 09:43 Blood Pressure 125/85 06/19/17 09:43 O2 Sat by Pulse Oximetry (%) Laboratory Last Values WBC 6.9 K/mm3 (4.0-10.0) 06/18/17 07:00 RBC 4.65 M/mm3 (4.00-5.60) 06/18/17 07:00 Hgb 12.4 GM/dL (11.7-16.9) 06/18/17 07:00 Hct 39.3 % (35.4-49) 06/18/17 07:00 MCV 84.4 fl (80-96) 06/18/17 07:00 MCH 26.6 pg (25.7-33.7) 06/18/17 07:00 MCHC 31.5 g/dl (32.0-35.9) L 06/18/17 07:00 RDW 14.9 % (11.9-15.9) 06/18/17 07:00 Plt Count 258 K/MM3 (134-434) 06/18/17 07:00 MPV 8.0 fl (7.5-11.1) 06/18/17 07:00 Sodium 141 mmol/L (136-145) 06/18/17 07:00 Potassium 3.8 mmol/L (3.5-5.1) 06/18/17 07:00 Chloride 101 mmol/L (98-107) 06/18/17 07:00 Carbon Dioxide 31 mmol/L (21-32) 06/18/17 07:00 Anion Gap 9 (8-16) 06/18/17 07:00 BUN 13 mg/dL (7-18) 06/18/17 07:00 Creatinine 0.8 mg/dL (0.7-1.3) 06/18/17 07:00 Creat Clearance w eGFR > 60 (>60) 06/18/17 07:00 Random Glucose 92 mg/dL (74-106) 06/18/17 07:00 Calcium 8.8 mg/dL (8.5-10.1) 06/18/17 07:00 Total Bilirubin 0.3 mg/dL (0.2-1.0) D 06/18/17 07:00 AST 18 U/L (15-37) D 06/18/17 07:00 ALT 28 U/L (12-78) 06/18/17 07:00 Alkaline Phosphatase 46 U/L (45-117) 06/18/17 07:00 Total Protein 6.8 g/dl (6.4-8.2) 06/18/17 07:00 Albumin 3.3 g/dl (3.4-5.0) L 06/18/17 07:00 Urine Color Straw 06/18/17 22:55 Urine Appearance Clear 06/18/17 22:55 Urine pH 7.0 (5.0-8.0) D 06/18/17 22:55 Ur Specific [place] 1.011 (1.001-1.035) 06/18/17 22:55 Urine Protein Negative (NEGATIVE) 06/18/17 22:55 Urine Glucose (UA) Negative (NEGATIVE) 06/18/17 22:55 Urine Ketones Negative (NEGATIVE) 06/18/17 22:55 Urine Blood Negative (NEGATIVE) 06/18/17 22:55 Urine Nitrite Negative (NEGATIVE) 06/18/17 22:55 Urine Bilirubin Negative (NEGATIVE) 06/18/17 22:55 Urine Urobilinogen Negative mg/dL (0.2-1.0) 06/18/17 22:55 Ur Leukocyte Esterase Negative (NEGATIVE) 06/18/17 22:55 RPR Titer Nonreactive (NONREACTIVE) 06/18/17 07:00 HIV 1&2 Antibody Screen Negative 06/18/17 07:00 HIV P24 Antigen Negative 06/18/17 07:00 Assessment: 06/19/17 13:22 WITHDRAWAL SX Plan: CONTINUE DETOX
[2017-06-19] MEDS: HYDROCORTISONE 1% TOPICAL CREAM 30 GM TUBE TP SCH ×2 (15:34→22:02)
[2017-06-19] MEDS: BACITRACIN 0.9 GM PACKET TP SCH (17:47)
[2017-06-19] MEDS: diazePAM 5 MG TABLET PO PRN (17:52)
[2017-06-19] MEDS: THIAMINE HCL 100 MG TABLET (FP) PO SCH (22:02)
[2017-06-19] MEDS: QUEtiapine FUMARATE 50 MG TABLET PO SCH (22:02)
[2017-06-20] MEDS: BACITRACIN 0.9 GM PACKET TP SCH (10:21)
[2017-06-20] MEDS: HYDROCORTISONE 1% TOPICAL CREAM 30 GM TUBE TP SCH ×2 (10:21→22:48)
[2017-06-20] MEDS: PANTOPRAZOLE 40 MG TABLET (FP) PO SCH (10:21)
[2017-06-20] MEDS: PRENATAL VITAMINS W/ FOLIC ACID TABLET (FP) PO SCH (10:22)
[2017-06-20] MEDS: NICOTINE 14 MG/24 HOURS TOPICAL PATCH TD SCH (10:22)
[2017-06-20] MEDS: METHADONE HCL 5 MG TABLET (FOR DETOX USE ONLY) PO SCH (10:22)
[2017-06-20] MEDS: diazePAM 5 MG TABLET PO SCH ×2 (10:22→22:49)
[2017-06-20] MEDS: predniSONE 10 MG TABLET (UD) PO SCH (10:22)
[2017-06-20] MEDS: CYCLOBENZAPRINE HCL 10 MG TABLET (FP) PO PRN ×2 (14:51→20:39)
[2017-06-20] MEDS: diazePAM 5 MG TABLET PO PRN ×2 (14:51→20:39)
[2017-06-20] MEDS: NICOTINE POLACRILEX 2 MG GUM BC PRN (14:52)
--- NOTE | 2017-06-20 15:39 | PN ---
[facility] Progress Note (SOAP) Subjective: Tremors, Body Aches, Anxious, Sweating. Objective: PT. A & O X 3, OBSERVED AMBULATING ON UNIT. NO ACUTE DISTRESS. 06/20/17 15:38 Vital Signs Temperature 97.4 F L 06/20/17 13:22 Pulse Rate 85 06/20/17 13:22 Respiratory Rate 20 06/20/17 13:22 Blood Pressure 120/83 06/20/17 13:22 O2 Sat by Pulse Oximetry (%) Laboratory Tests 06/18/17 06/18/17 06/18/17 07:00 07:00 07:00 WBC 6.9 RBC 4.65 Hgb 12.4 Hct 39.3 MCV 84.4 MCH 26.6 MCHC 31.5 L RDW 14.9 Plt Count 258 MPV 8.0 Sodium 141 Potassium 3.8 Chloride 101 Carbon Dioxide 31 Anion Gap 9 BUN 13 Creatinine 0.8 Creat Clearance w eGFR > 60 Random Glucose 92 Calcium 8.8 Total Bilirubin 0.3 D AST 18 D ALT 28 Alkaline Phosphatase 46 Total Protein 6.8 Albumin 3.3 L Urine Color Urine Appearance Urine pH Ur Specific [place] Urine Protein Urine Glucose (UA) Urine Ketones Urine Blood Urine Nitrite Urine Bilirubin Urine Urobilinogen Ur Leukocyte Esterase RPR Titer Nonreactive HIV 1&2 Antibody Screen HIV P24 Antigen 06/18/17 06/18/17 07:00 22:55 WBC RBC Hgb Hct MCV MCH MCHC RDW Plt Count MPV Sodium Potassium Chloride Carbon Dioxide Anion Gap BUN Creatinine Creat Clearance w eGFR Random Glucose Calcium Total Bilirubin AST ALT Alkaline Phosphatase Total Protein Albumin Urine Color Straw Urine Appearance Clear Urine pH 7.0 D Ur Specific [place] 1.011 Urine Protein Negative Urine Glucose (UA) Negative Urine Ketones Negative Urine Blood Negative Urine Nitrite Negative Urine Bilirubin Negative Urine Urobilinogen Negative Ur Leukocyte Esterase Negative RPR Titer HIV 1&2 Antibody Screen Negative HIV P24 Antigen Negative LABS NOTED. Assessment: 06/20/17 15:38 WITHDRAWAL SYMPTOMS. Plan: CONTINUE DETOX. INCREASE DAILY PO FLUID INTAKE. PRN FLEXERIL FOR BODY ACHES / MUSCLE SPASMS.
[2017-06-20] MEDS: QUEtiapine FUMARATE 50 MG TABLET PO SCH (22:48)
[2017-06-20] MEDS: THIAMINE HCL 100 MG TABLET (FP) PO SCH (22:48)
[2017-06-21] MEDS ORDERED: diazePAM 5 MG TABLET PO SCH (10:00)
[2017-06-21] MEDS ORDERED: METHADONE HCL 10 MG TABLET (FOR DETOX USE ONLY) PO SCH (10:00)
[2017-06-21] MEDS: BACITRACIN 0.9 GM PACKET TP SCH (10:25)
[2017-06-21] MEDS: HYDROCORTISONE 1% TOPICAL CREAM 30 GM TUBE TP SCH ×2 (10:25→22:28)
[2017-06-21] MEDS: NICOTINE 14 MG/24 HOURS TOPICAL PATCH TD SCH (10:26)
[2017-06-21] MEDS: PRENATAL VITAMINS W/ FOLIC ACID TABLET (FP) PO SCH (10:26)
[2017-06-21] MEDS: NICOTINE POLACRILEX 2 MG GUM BC PRN ×2 (10:26→19:57)
[2017-06-21] MEDS: PANTOPRAZOLE 40 MG TABLET (FP) PO SCH (10:26)
[2017-06-21] MEDS: predniSONE 10 MG TABLET (UD) PO SCH (10:26)
[2017-06-21] MEDS: CYCLOBENZAPRINE HCL 10 MG TABLET (FP) PO PRN ×2 (11:40→22:27)
--- NOTE | 2017-06-21 14:44 | PN ---
[facility] Progress Note (SOAP) Subjective: Sweating, back pain, sweating Objective: 06/21/17 14:42 Last Vital Signs Temp Pulse Resp BP Pulse Ox 97.7 F 81 20 111/75 06/21/17 13:13 06/21/17 13:13 06/21/17 13:13 06/21/17 13:13 Laboratory Tests 06/18/17 06/18/17 06/18/17 07:00 07:00 07:00 WBC 6.9 RBC 4.65 Hgb 12.4 Hct 39.3 MCV 84.4 MCH 26.6 MCHC 31.5 L RDW 14.9 Plt Count 258 MPV 8.0 Sodium 141 Potassium 3.8 Chloride 101 Carbon Dioxide 31 Anion Gap 9 BUN 13 Creatinine 0.8 Creat Clearance w eGFR > 60 Random Glucose 92 Calcium 8.8 Total Bilirubin 0.3 D AST 18 D ALT 28 Alkaline Phosphatase 46 Total Protein 6.8 Albumin 3.3 L Urine Color Urine Appearance Urine pH Ur Specific [place] Urine Protein Urine Glucose (UA) Urine Ketones Urine Blood Urine Nitrite Urine Bilirubin Urine Urobilinogen Ur Leukocyte Esterase RPR Titer Nonreactive HIV 1&2 Antibody Screen HIV P24 Antigen 06/18/17 06/18/17 07:00 22:55 WBC RBC Hgb Hct MCV MCH MCHC RDW Plt Count MPV Sodium Potassium Chloride Carbon Dioxide Anion Gap BUN Creatinine Creat Clearance w eGFR Random Glucose Calcium Total Bilirubin AST ALT Alkaline Phosphatase Total Protein Albumin Urine Color Straw Urine Appearance Clear Urine pH 7.0 D Ur Specific [place] 1.011 Urine Protein Negative Urine Glucose (UA) Negative Urine Ketones Negative Urine Blood Negative Urine Nitrite Negative Urine Bilirubin Negative Urine Urobilinogen Negative Ur Leukocyte Esterase Negative RPR Titer HIV 1&2 Antibody Screen Negative HIV P24 Antigen Negative Labs noted Assessment: 06/21/17 14:43 Withdrawal symptoms Plan: Continue detox
[2017-06-21] MEDS: LIDOCAINE 5% TOPICAL PATCH TP SCH (15:00)
[2017-06-21] MEDS ORDERED: LIDOCAINE PATCH REMOVAL MC SCH (22:00)
[2017-06-21] MEDS: THIAMINE HCL 100 MG TABLET (FP) PO SCH (22:27)
[2017-06-21] MEDS: QUEtiapine FUMARATE 50 MG TABLET PO SCH (22:27)
[2017-06-22] MEDS ORDERED: METHADONE HCL 5 MG TABLET (FOR DETOX USE ONLY) PO SCH (06:00)
[2017-06-22 09:31] VITALS: BP 112/80; PULSE 91; TEMP 99.7
[2017-06-22] MEDS: NICOTINE 14 MG/24 HOURS TOPICAL PATCH TD SCH (10:46)
[2017-06-22] MEDS: PRENATAL VITAMINS W/ FOLIC ACID TABLET (FP) PO SCH (10:46)
[2017-06-22] MEDS: BACITRACIN 0.9 GM PACKET TP SCH (10:46)
[2017-06-22] MEDS: PANTOPRAZOLE 40 MG TABLET (FP) PO SCH (10:47)
[2017-06-22] MEDS: LIDOCAINE 5% TOPICAL PATCH TP SCH (10:47)
[2017-06-22] MEDS: HYDROCORTISONE 1% TOPICAL CREAM 30 GM TUBE TP SCH (10:47)
--- NOTE | 2017-06-22 16:32 | DS ---
[facility] Detox Discharge Summary Admission Date: 06/17/17 Discharge Date: 06/22/17 - History Present History: Opioid Dependence, Sedative Dependence Additional Comments: PATIENT GOING TO [facility] ([place], [place] FOR AFTERCARE. PATIENT WAS DISCHARGED FROM DETOX UNIT IN STABLE MEDICAL CONDITION. Pertinent Past History: Depression, Insomnia, GERD, Nicotine Dependence, Bipolar Disorder. - Physical Exam Results Vital Signs: Vital Signs Temperature 99.7 F H 06/22/17 09:30 Pulse Rate 91 H 06/22/17 09:30 Respiratory Rate 16 06/22/17 09:30 Blood Pressure 112/80 06/22/17 09:30 O2 Sat by Pulse Oximetry (%) Pertinent Admission Physical Exam Findings: WITHDRAWAL SYMPTOMS. Laboratory Tests 06/18/17 06/18/17 06/18/17 07:00 07:00 07:00 WBC 6.9 RBC 4.65 Hgb 12.4 Hct 39.3 MCV 84.4 MCH 26.6 MCHC 31.5 L RDW 14.9 Plt Count 258 MPV 8.0 Sodium 141 Potassium 3.8 Chloride 101 Carbon Dioxide 31 Anion Gap 9 BUN 13 Creatinine 0.8 Creat Clearance w eGFR > 60 Random Glucose 92 Calcium 8.8 Total Bilirubin 0.3 D AST 18 D ALT 28 Alkaline Phosphatase 46 Total Protein 6.8 Albumin 3.3 L Urine Color Urine Appearance Urine pH Ur Specific [place] Urine Protein Urine Glucose (UA) Urine Ketones Urine Blood Urine Nitrite Urine Bilirubin Urine Urobilinogen Ur Leukocyte Esterase RPR Titer Nonreactive HIV 1&2 Antibody Screen HIV P24 Antigen 06/18/17 06/18/17 07:00 22:55 WBC RBC Hgb Hct MCV MCH MCHC RDW Plt Count MPV Sodium Potassium Chloride Carbon Dioxide Anion Gap BUN Creatinine Creat Clearance w eGFR Random Glucose Calcium Total Bilirubin AST ALT Alkaline Phosphatase Total Protein Albumin Urine Color Straw Urine Appearance Clear Urine pH 7.0 D Ur Specific [place] 1.011 Urine Protein Negative Urine Glucose (UA) Negative Urine Ketones Negative Urine Blood Negative Urine Nitrite Negative Urine Bilirubin Negative Urine Urobilinogen Negative Ur Leukocyte Esterase Negative RPR Titer HIV 1&2 Antibody Screen Negative HIV P24 Antigen Negative LABS NOTED. - Treatment Hospital Course: Detox Protocol Followed, Detoxed Safely, Responded well, Discharged Condition Good Patient has Accepted a Rehab Referral to: PT GOING TO [facility] ([place] , [place] [facility] FOR AFTERCARE. - Medication Discharge Medications: Ambulatory Orders Fluoxetine HCl [Prozac -] 10 mg PO DAILY #30 capsule 07/16/15 Omeprazole Magnesium [Prilosec Otc] 20 mg PO DAILY 06/17/17 Quetiapine Fumarate [Seroquel -] 50 mg PO HS #30 tablet 06/22/17 - Diagnosis (1) Opioid dependence with withdrawal Status: Acute (2) Uncomplicated sedative, hypnotic or anxiolytic withdrawal Status: Acute (3) Depression Status: Chronic Qualifiers: Depression Type: unspecified Qualified Code(s): F32.9 - Major depressive disorder, single episode, unspecified (4) GERD (gastroesophageal reflux disease) Status: Chronic Qualifiers: Esophagitis presence: esophagitis presence not specified Qualified Code(s) : K21.9 - Gastro-esophageal reflux disease without esophagitis (5) Nicotine dependence Status: Chronic Qualifiers: Nicotine product type: cigarettes Substance use status: uncomplicated Qualified Code(s): F17.210 - Nicotine dependence, cigarettes, uncomplicated (6) Insomnia Status: Acute Qualifiers: Insomnia type: unspecified Qualified Code(s): G47.00 - Insomnia, unspecified - AMA Did Patient Leave Against Medical Advice: No
== END 2017-06-22 12:40 | disposition home or self-care (01) | DRG 773 ==
LOC: YASAS 15:44 → Y3N 21:41
PROVIDERS: ADMIT Internal Medicine; ATTEND Internal Medicine
PROC: HZ2ZZZZ Detoxification Services for Substance Abuse Treatment (ICD-10-PCS; principal; 2017-06-17)
DX: F11.23 Opioid dependence with withdrawal (principal); F13.230 Sedative, hypnotic or anxiolytic dependence with withdrawal, uncomplicated; F17.210 Nicotine dependence, cigarettes, uncomplicated; F33.9 Major depressive disorder, recurrent, unspecified; K21.9 Gastro-esophageal reflux disease without esophagitis; G47.00 Insomnia, unspecified; R21 Rash and other nonspecific skin eruption; Z88.6 Allergy status to analgesic agent; Z91.018 Allergy to other foods
CPT/HCPCS: 36415; 80053; 81003; 85027; 86593; 87389; 93005; 93010

== ENCOUNTER 2018-08-09 21:57 | Inpatient (IN) | payer OTHER ==
[2018-08-09 22:25] VITALS: BMI 33.5
--- NOTE | 2018-08-10 01:38 | HP ---
COWS - Scale Resting Pulse: 1= OR 81-100 Sweatin=Flushed/Facial Moisture Restless Observation: 0= Sits Still Pupil Size: 0= Normal to Room Light Bone or Joint Aches: 4=Acute Joint/Muscle Pain Runny Nose/ Eye Tearin= Runny Nose/Eyes GI Upset > 30mins: 3= Vomiting/Diarrhea (vomiting x 2, diarrhea x 1) Tremor Observation: 2= Slight Tremor Visible Yawning Observation: 0= None Anxiety or Irritability: 2=Irritable/Anxious Goose Flesh Skin: 0=Smooth Skin COWS Score: 16 CIWA Score Nausea/Vomitin (vomiting x 2) Muscle Tremors: 4-Moderate,w/Arms Extend Anxiety: 3 Agitation: 4-Moderately Restless Paroxysmal Sweats: No Perspiration Orientation: 0-Oriented Tacttile Disturbances: 0-None Auditory Disturbances: 0-None Visual Disturbances: 0-None Headache: 3-Moderate CIWA-Ar Total Score: 17 - Admission Criteria OASAS Guidelines: Admission for Medically Managed Detox: Requires at least one of the followin. CIWA greater than 12 2. Seizures within the past 24 hours 3. Delirium tremens within the past 24 hours 4. Hallucinations within the past 24 hours 5. Acute intervention needed for co occurring medical disorder 6. Acute intervention needed for co occurring psychiatric disorder 7. Severe withdrawal that cannot be handled at a lower level of care (continued vomiting, continued diarrhea, abnormal vital signs) requiring intravenous medication and/or fluids 8. Admission [facility] Chief Complaint: Heroine and benzo withdrawal symptoms Allergies/Adverse Reactions: Allergies Allergy/AdvReac Type Severity Reaction Status Date / Time ibuprofen Allergy Intermediate Verified 08/10/18 00:04 Pork/Porcine Containing Allergy Intermediate Verified 08/10/18 00:04 Products History of Present Illness: 43 years old male with a long history of heroin and xanax dependence is seeking admission to detox. Patient reports that he buys his Xanax from the street. He has medical medical history depression and GERD. He denies suicidal ideation at this time. Exam Limitations: No Limitations - Ebola screening Have you traveled outside of the country in the last 21 days: No (N) Have you had contact with anyone from an Ebola affected area: No Have you been sick,other than usual withdrawal symptoms: No Do you have a fever: No - Review of Systems Constitutional: Chills, Loss of Appetite, Malaise, Changes in sleep EENT: reports: Sinus Pressure Respiratory: reports: No Symptoms reported Cardiac: reports: No Symptoms Reported GI: reports: Diarrhea, Nausea, Poor Appetite, Vomiting, Abdominal cramping : reports: No Symptoms Reported Musculoskeletal: reports: Back Pain Integumentary: reports: Dryness, Flushing Neuro: reports: Tremors Endocrine: reports: No Symptoms Reported Hematology: reports: No Symptoms Reported Psychiatric: reports: Judgement Intact, Orientated x3 Other Systems: Reviewed and Negative Patient History - Patient Medical History Hx Anemia: No Hx Asthma: No Hx Chronic Obstructive Pulmonary Disease (COPD): No Hx Cancer: No Hx Cardiac Disorders: No Hx Congestive Heart Failure: No Hx Hypertension: No Hx Hypercholesterolemia: No Hx Pacemaker: No HX Cerebrovascular Accident: No Hx Seizures: No Hx Dementia: No Hx Diabetes: No Hx Gastrointestinal Disorders: Yes (GERD) Hx Liver Disease: No Hx Genitourinary Disorders: No Hx Sexually Transmitted Disorders: No Hx Renal Disease (ESRD): No Hx Thyroid Disease: No Hx Human Immunodeficiency Virus (HIV): No (Negative August 2016) Hx Hepatitis C: No Hx Depression: Yes (PROZAC) Hx Suicide Attempt: No (Denies suicidal ideation) Hx Bipolar Disorder: Yes (ABILIFY?) Hx Schizophrenia: No - Patient Surgical History Past Surgical History: No Hx Neurologic Surgery: No Hx Cataract Extraction: No Hx Cardiac Surgery: No Hx Lung Surgery: No Hx Breast Surgery: No Hx Breast Biopsy: No Hx Abdominal Surgery: No Hx Appendectomy: No Hx Cholecystectomy: No Hx Genitourinary Surgery: No Hx Section: No Hx Orthopedic Surgery: No Anesthesia Reaction: No - PPD History Previous Implant?: Yes Documented Results: Positive w/proof Implanted On Prior [facility] Admission?: Yes Date: 01/26/17 Results: 0 mm PPD to be Administered?: Yes - Reproductive History Patient is a Female of Child Bearing Age (11 -55 yrs old): No (Male) - Smoking Cessation Smoking history: Current every day smoker Have you smoked in the past 12 months: Yes Aproximately how many cigarettes per day: 10 Hx Chewing Tobacco Use: No Initiated information on smoking cessation: Yes 'Breaking Loose' booklet given: 08/10/18 - Substance & Tx. History Hx Substance Use: Yes Substance Use Type: Marijuana Hx Substance Use Treatment: Yes ([facility]) - Substances Abused Heroin Route: SNIFF Frequency: Daily Amount used: 1 BUNDLE Age of first use: 28 Date of Last Use: 08/09/18 Alprazolam (Xanax) Route: Oral Frequency: Daily Amount used: 3/2MG Age of first use: 28 Date of Last Use: 08/09/18 Family Disease History - Family Disease History Family Disease History: Diabetes: Grandparent (HTN,ALCOHOLIC), Heart Disease: Grandparent, Other: Grandparent, Father (ALCOHOLIC, ARTHRITIS) Admission Physical Exam [facility] - Vital Signs Vital Signs: Vital Signs - 24 hr 08/09/18 22:23 Temperature 98.8 F Pulse Rate 90 Respiratory 18 Rate Blood Pressure 123/68 - Physical General Appearance: Yes: Moderate Distress, Tremorous, Sweating, Anxious HEENTM: Yes: EOMI, Normal ENT Inspection, Normal Voice, ELEAZAR Respiratory: Yes: Lungs Clear, Normal Breath Sounds, No Respiratory Distress Neck: Yes: Supple Breast: Yes: Breast Exam Deferred Cardiology: Yes: Regular Rhythm, Regular Rate Abdominal: Yes: Normal Bowel Sounds, Soft Genitourinary: Yes: Within Normal Limits Back: Yes: Normal Inspection Musculoskeletal: Yes: Back pain, Muscle Pain Extremities: Yes: Tremors Neurological: Yes: Alert, Normal Mood/Affect Integumentary: Yes: Warm Lymphatic: Yes: Within Normal Limits - Diagnostic (1) Opioid dependence with withdrawal Current Visit: Yes Status: Chronic (2) Uncomplicated sedative, hypnotic or anxiolytic withdrawal Current Visit: Yes Status: Chronic (3) Depression Current Visit: Yes Status: Chronic Qualifiers: Depression Type: unspecified Qualified Code(s): F32.9 - Major depressive disorder, single episode, unspecified (4) GERD (gastroesophageal reflux disease) Current Visit: Yes Status: Chronic Qualifiers: Esophagitis presence: esophagitis presence not specified Qualified Code(s) : K21.9 - Gastro-esophageal reflux disease without esophagitis (5) Nicotine dependence Current Visit: Yes Status: Chronic Qualifiers: Nicotine product type: cigarettes Substance use status: uncomplicated Qualified Code(s): F17.210 - Nicotine dependence, cigarettes, uncomplicated Cleared for Admission S - Detox or Rehab [facility] Level of Care: Medically Managed Detox Regimen/Protocol: Methadone/Valium S Breath Alcohol Content Breath Alcohol Content: 0 Urine Drug Screen - Results Drug Screen Negative: No Urine Drug Screen Results: THC-Marijuana, OPI-Opiates, BZO-Benzodiazepines Inpatient Rehab Admission - Rehab Decision to Admit Inpatient rehab admission?: No
[2018-08-10] MEDS ORDERED: MAG HYDROX/AL HYDROX/SIMETH 30 ML UNIT-DOSE CUP PO PRN (01:45)
[2018-08-10] MEDS ORDERED: cloNIDine HCL 0.1 MG TABLET PO PRN (01:45)
[2018-08-10] MEDS ORDERED: BISMUTH SUBSALICYLATE 524 MG/30 ML UD PO PRN (01:45)
[2018-08-10] MEDS ORDERED: ACETAMINOPHEN 325 MG TABLET (FP) PO PRN (01:45)
[2018-08-10] MEDS ORDERED: MENTHOL/PHENOL 1 EACH UD MM PRN (01:45)
[2018-08-10] MEDS ORDERED: MELATONIN 5 MG TABLETS PO PRN (01:45)
[2018-08-10] MEDS ORDERED: IBUPROFEN 400 MG TABLET (FP) PO PRN (01:45)
[2018-08-10] MEDS ORDERED: MAGNESIUM HYDROX 2400MG/30ML ORAL SUSPENSION 30 ML CUP PO PRN (01:45)
[2018-08-10] MEDS ORDERED: MAGNESIUM CITRATE 300 ML BOTTLE PO PRN (01:45)
[2018-08-10] MEDS ORDERED: METHADONE HCL 10 MG TABLET (FOR DETOX USE ONLY) PO ONE ×3 (02:25→23:00)
[2018-08-10] MEDS: diazePAM 5 MG TABLET PO PRN ×2 (02:46→10:08)
[2018-08-10] MEDS: diazePAM 5 MG TABLET PO SCH ×3 (05:52→21:58)
[2018-08-10] MEDS: PRENATAL VITAMINS W/ FOLIC ACID TABLET (FP) PO SCH (10:07)
--- NOTE | 2018-08-10 16:20 | PN ---
[facility] CIWA - CIWA Score Nausea/Vomitin-Mild Nausea/No Vomiting Muscle Tremors: 3 Anxiety: 1-Mildly Anxious Agitation: 3 Paroxysmal Sweats: 2 Orientation: 1-Uncertain about Date Tacttile Disturbances: 0-None Auditory Disturbances: 0-None Visual Disturbances: 0-None Headache: 1-Very Mild CIWA-Ar Total Score: 12 [facility] COWS - Scale Resting Pulse: 0= [place] 80 or Below Sweatin= Chills/Flushing Restless Observation: 0= Sits Still Pupil Size: 0= Normal to Room Light Bone or Joint Aches: 2= Severe Diffuse Aches Runny Nose/ Eye Tearin= Nasal Congestion GI Upset > 30mins: 1= Stomach Cramp Tremor Observation of Outstretched Hands: 2= Slight Tremor Visible Yawning Observation: 2= >3x During Session Anxiety or Irritability: 2=Irritable/Anxious Goose Flesh Skin: 0=Smooth Skin COWS Score: 11 [facility] Progress Note (SOAP) Subjective: back pain muscle soreness trouble sleep at night sweating tremor Objective: 08/10/18 16:18 Vital Signs Temperature 98.4 F 08/10/18 13:32 Pulse Rate 74 08/10/18 13:32 Respiratory Rate 18 08/10/18 13:32 Blood Pressure 103/66 08/10/18 13:32 O2 Sat by Pulse Oximetry (%) lab noted Assessment: 08/10/18 16:19 withdrawal sx Plan: continue detox
[2018-08-10] MEDS: THIAMINE HCL 100 MG TABLET (FP) PO SCH (21:58)
[2018-08-11] MEDS: diazePAM 5 MG TABLET PO SCH ×2 (05:40→18:02)
[2018-08-11] MEDS: PRENATAL VITAMINS W/ FOLIC ACID TABLET (FP) PO SCH (09:13)
[2018-08-11] MEDS ORDERED: ONDANSETRON *ODT* 4 MG TABLET SL ONE (09:50)
[2018-08-11] MEDS ORDERED: METHADONE HCL 5 MG TABLET (FOR DETOX USE ONLY) PO ONE ×2 (10:00)
[2018-08-11] MEDS: RANITIDINE HCL 150 MG TABLET (FP) PO SCH ×2 (10:13→22:28)
[2018-08-11 10:51] LABS: ALBUMIN 3.5 g/dl (3.4-5.0); ALK PHOS 44 U/L (45-117); ANION GAP 6 MMOL/L (8-16); BILIRUBIN,TOTAL 0.4 mg/dL (0.2-1); BLOOD UREA NITROGEN 7 mg/dL (7-18); CALCIUM 8.6 mg/dL (8.5-10.1); CHLORIDE 105 mmol/L (98-107); CO2 28 mmol/L (21-32); CREATININE 0.9 mg/dL (0.55-1.3); GLUCOSE,RANDOM 104 mg/dL (74-106); POTASSIUM 4.1 mmol/L (3.5-5.1); SGOT/AST 72 U/L (15-37); SGPT/ALT 39 U/L (13-61); SODIUM 139 mmol/L (136-145); TOT PROT 7.1 g/dl (6.4-8.2)
[2018-08-11 11:06] LABS: HEMATOCRIT 38.2 % (35.4-49); HEMOGLOBIN 12.7 GM/dL (11.7-16.9); MCH 27.9 pg (25.7-33.7); MCHC 33.2 g/dl (32.0-35.9); MEAN CELL VOLUME 84.2 fl (80-96); MEAN PLT VOLUME 8.4 fl (7.5-11.1); PLATELET COUNT 302 K/MM3 (134-434); RBC 4.54 M/mm3 (4.00-5.60); RDW 14.5 % (11.9-15.9); WHITE BLOOD COUNT 4.5 K/mm3 (4.0-10.0)
[2018-08-11] MEDS: diazePAM 5 MG TABLET PO PRN ×2 (12:16→22:30)
[2018-08-11] MEDS ORDERED: METHADONE HCL 10 MG TABLET (FOR DETOX USE ONLY) PO ONE (15:18)
--- NOTE | 2018-08-11 15:21 | PN ---
[facility] CIWA - CIWA Score Nausea/Vomitin-No Nausea/No Vomiting Muscle Tremors: 1-None Visible, but [place] Anxiety: 1-Mildly Anxious Agitation: 2 Paroxysmal Sweats: 1-Minimal Palms Moist Orientation: 1-Uncertain about Date Tacttile Disturbances: 0-None Auditory Disturbances: 0-None Visual Disturbances: 0-None Headache: 1-Very Mild CIWA-Ar Total Score: 7 S COWS - Scale Resting Pulse: 0= [place] 80 or Below Sweatin= Chills/Flushing Restless Observation: 0= Sits Still Pupil Size: 0= Normal to Room Light Bone or Joint Aches: 1= Mild Discomfort Runny Nose/ Eye Tearin= Nasal Congestion GI Upset > 30mins: 1= Stomach Cramp Tremor Observation of Outstretched Hands: 1= Tremor [place], Not Seen Yawning Observation: 1= 1-2x During Session Anxiety or Irritability: 1=Feels Anxious/Irritable Goose Flesh Skin: 0=Smooth Skin COWS Score: 7 [facility] Progress Note (SOAP) Subjective: nausea vomiting x 1 treated with zofran 8 mg reorder methadone 10 mg due to vomit out 20 mg methadone today able to tolerate valium well mild treor anxious restlessness Objective: 08/11/18 15:25 Vital Signs Temperature 97.7 F 08/11/18 13:19 Pulse Rate 64 08/11/18 13:19 Respiratory Rate 18 08/11/18 13:19 Blood Pressure 113/66 08/11/18 13:19 O2 Sat by Pulse Oximetry (%) Laboratory Last Values WBC 4.5 K/mm3 (4.0-10.0) 08/11/18 07:00 RBC 4.54 M/mm3 (4.00-5.60) 08/11/18 07:00 Hgb 12.7 GM/dL (11.7-16.9) 08/11/18 07:00 Hct 38.2 % (35.4-49) 08/11/18 07:00 MCV 84.2 fl (80-96) 08/11/18 07:00 MCH 27.9 pg (25.7-33.7) 08/11/18 07:00 MCHC 33.2 g/dl (32.0-35.9) 08/11/18 07:00 RDW 14.5 % (11.9-15.9) 08/11/18 07:00 Plt Count 302 K/MM3 (134-434) 08/11/18 07:00 MPV 8.4 fl (7.5-11.1) 08/11/18 07:00 Sodium 139 mmol/L (136-145) 08/11/18 07:00 Potassium 4.1 mmol/L (3.5-5.1) 08/11/18 07:00 Chloride 105 mmol/L (98-107) 08/11/18 07:00 Carbon Dioxide 28 mmol/L (21-32) 08/11/18 07:00 Anion Gap 6 MMOL/L (8-16) L 08/11/18 07:00 BUN 7 mg/dL (7-18) 08/11/18 07:00 Creatinine 0.9 mg/dL (0.55-1.3) 08/11/18 07:00 Creat Clearance w eGFR > 60 (>60) 08/11/18 07:00 Random Glucose 104 mg/dL (74-106) 08/11/18 07:00 Calcium 8.6 mg/dL (8.5-10.1) 08/11/18 07:00 Total Bilirubin 0.4 mg/dL (0.2-1) 08/11/18 07:00 AST 72 U/L (15-37) H 08/11/18 07:00 ALT 39 U/L (13-61) 08/11/18 07:00 Alkaline Phosphatase 44 U/L (45-117) L 08/11/18 07:00 Total Protein 7.1 g/dl (6.4-8.2) 08/11/18 07:00 Albumin 3.5 g/dl (3.4-5.0) 08/11/18 07:00 RPR Titer Nonreactive (NONREACTIVE) 08/11/18 07:00 lab noted Assessment: 08/11/18 15:25 withdrawal sx Plan: continue detox
[2018-08-11] MEDS: METHOCARBAMOL 500 MG TABLET PO PRN (18:03)
[2018-08-11] MEDS: hydrOXYzine PAMOATE 25 MG CAPSULE (FP) PO PRN (19:00)
[2018-08-11] MEDS: THIAMINE HCL 100 MG TABLET (FP) PO SCH (22:28)
[2018-08-12] MEDS ORDERED: diazePAM 5 MG TABLET PO ONE (06:00)
[2018-08-12] MEDS ORDERED: METHADONE HCL 10 MG TABLET (FOR DETOX USE ONLY) PO ONE ×2 (10:00)
[2018-08-12] MEDS ORDERED: METHADONE HCL 5 MG TABLET (FOR DETOX USE ONLY) PO ONE (10:00)
[2018-08-12] MEDS: PRENATAL VITAMINS W/ FOLIC ACID TABLET (FP) PO SCH (10:11)
[2018-08-12] MEDS: RANITIDINE HCL 150 MG TABLET (FP) PO SCH ×2 (10:12→21:59)
[2018-08-12] MEDS: ACETAMINOPHEN 325 MG TABLET (FP) PO PRN ×2 (10:13→22:01)
[2018-08-12] MEDS: METHOCARBAMOL 500 MG TABLET PO PRN ×2 (10:15→17:16)
[2018-08-12] MEDS ORDERED: ONDANSETRON *ODT* 4 MG TABLET SL PRN (10:28)
[2018-08-12] MEDS: LOPERAMIDE HCL 2 MG CAPSULE PO PRN ×2 (11:20→17:15)
[2018-08-12] MEDS: diazePAM 5 MG TABLET PO PRN ×3 (14:07→21:59)
--- NOTE | 2018-08-12 18:29 | PN ---
[facility] Progress Note (SOAP) Subjective: Stomach Cramping, Interrupted Sleep, Tremors, Nausea, Diarrhea, Sweating. Objective: PATIENT A & O X 3, OBSERVED AMBULATING ON UNIT. IN NO ACUTE DISTRESS. 08/12/18 18:27 Vital Signs Temperature 97.4 F L 08/12/18 14:10 Pulse Rate 81 08/12/18 14:10 Respiratory Rate 18 08/12/18 14:10 Blood Pressure 111/65 08/12/18 14:10 O2 Sat by Pulse Oximetry (%) Laboratory Tests 08/11/18 08/11/18 08/11/18 07:00 07:00 07:00 WBC 4.5 RBC 4.54 Hgb 12.7 Hct 38.2 MCV 84.2 MCH 27.9 MCHC 33.2 RDW 14.5 Plt Count 302 MPV 8.4 Sodium 139 Potassium 4.1 Chloride 105 Carbon Dioxide 28 Anion Gap 6 L BUN 7 Creatinine 0.9 Creat Clearance w eGFR > 60 Random Glucose 104 Calcium 8.6 Total Bilirubin 0.4 AST 72 H ALT 39 Alkaline Phosphatase 44 L Total Protein 7.1 Albumin 3.5 RPR Titer Nonreactive LABS NOTED. Assessment: 08/12/18 18:27 WITHDRAWAL SYMPTOMS. Plan: CONTINUE DETOX. INCREASE DAILY PO FLUID INTAKE. PRN ZOFRAN SL FOR NAUSEA. PRN IMODIUM FOR DIARRHEA.
[2018-08-12] MEDS: THIAMINE HCL 100 MG TABLET (FP) PO SCH (21:59)
[2018-08-13] MEDS ORDERED: METHADONE HCL 5 MG TABLET (FOR DETOX USE ONLY) PO ONE ×2 (06:00→10:00)
[2018-08-13 09:21] VITALS: BP 102/64; PULSE 63; TEMP 98.6
[2018-08-13] MEDS: PRENATAL VITAMINS W/ FOLIC ACID TABLET (FP) PO SCH (10:00)
[2018-08-13] MEDS: RANITIDINE HCL 150 MG TABLET (FP) PO SCH (10:01)
[2018-08-13] MEDS: hydrOXYzine PAMOATE 25 MG CAPSULE (FP) PO PRN (10:01)
[2018-08-13] MEDS: METHOCARBAMOL 500 MG TABLET PO PRN (10:01)
--- NOTE | 2018-08-13 20:56 | PN ---
S Progress Note (SOAP) Subjective: Patient denies current Withdrawal / Detox symptoms and reports that he feels well overall. Objective: PATIENT A & O X 3, OBSERVED AMBULATING ON UNIT. IN NO ACUTE DISTRESS. Vital Signs Temperature 98.6 F 08/13/18 09:20 Pulse Rate 63 08/13/18 09:20 Respiratory Rate 16 08/13/18 09:20 Blood Pressure 102/64 08/13/18 09:20 O2 Sat by Pulse Oximetry (%) Laboratory Tests 08/11/18 08/11/18 08/11/18 07:00 07:00 07:00 WBC 4.5 RBC 4.54 Hgb 12.7 Hct 38.2 MCV 84.2 MCH 27.9 MCHC 33.2 RDW 14.5 Plt Count 302 MPV 8.4 Sodium 139 Potassium 4.1 Chloride 105 Carbon Dioxide 28 Anion Gap 6 L BUN 7 Creatinine 0.9 Creat Clearance w eGFR > 60 Random Glucose 104 Calcium 8.6 Total Bilirubin 0.4 AST 72 H ALT 39 Alkaline Phosphatase 44 L Total Protein 7.1 Albumin 3.5 RPR Titer Nonreactive LABS NOTED. 08/13/18 20:54 Assessment: 08/13/18 20:55 COMPLETION OF DETOX REGIMEN. Plan: SINCE PATIENT DENIES CURRENT WITHDRAWAL / DETOX SYMPTOMS AND REPORTS THAT HE FEELS WELL OVERALL, AT PATIENT'S REQUEST, HE WAS GRANTED AN EARLY DISCHARGE FROM DETOX UNIT.
--- NOTE | 2018-08-13 20:59 | DS ---
[facility] Detox Discharge Summary Admission Date: 08/10/18 Discharge Date: 08/13/18 - History Present History: Opioid Dependence, Sedative Dependence Additional Comments: PATIENT DENIES CURRENT WITHDRAWAL / DETOX SYMPTOMS AND REPORTS THAT HE FEELS WELL OVERALL AT TIME OF DISCHARGE FROM DETOX UNIT. PATIENT ELECTING TO GO HOME FOR TIME BEING, WILL CONSIDER REHAB FOR FUTURE TIME. PATIENT ALSO ADVISED TO CONSIDER LOCAL 12-STEP / NA OUTPATIENT SUPPORT GROUP FOR AFTERCARE. PATIENT VERBALIZED UNDERSTANDING OF RECOMMENDATION. PATIENT WAS DISCHARGED FROM DETOX UNIT IN STABLE MEDICAL CONDITION. Pertinent Past History: History of Bipolar Disorder, History of Depression, History of G.E.R.D., Nicotine Dependence. - Physical Exam Results Vital Signs: Vital Signs Temperature 98.6 F 08/13/18 09:20 Pulse Rate 63 08/13/18 09:20 Respiratory Rate 16 08/13/18 09:20 Blood Pressure 102/64 08/13/18 09:20 O2 Sat by Pulse Oximetry (%) Pertinent Admission Physical Exam Findings: WITHDRAWAL SYMPTOMS. Laboratory Tests 08/11/18 08/11/18 08/11/18 07:00 07:00 07:00 WBC 4.5 RBC 4.54 Hgb 12.7 Hct 38.2 MCV 84.2 MCH 27.9 MCHC 33.2 RDW 14.5 Plt Count 302 MPV 8.4 Sodium 139 Potassium 4.1 Chloride 105 Carbon Dioxide 28 Anion Gap 6 L BUN 7 Creatinine 0.9 Creat Clearance w eGFR > 60 Random Glucose 104 Calcium 8.6 Total Bilirubin 0.4 AST 72 H ALT 39 Alkaline Phosphatase 44 L Total Protein 7.1 Albumin 3.5 RPR Titer Nonreactive LABS NOTED. - Treatment Hospital Course: Detox Protocol Followed, Detoxed Safely, Responded well, Discharged Condition Good Patient has Accepted a Rehab Referral to: PT. ADVISED TO CONSIDER LOCAL 12-STEP / NA / AA OUTPATIENT SUPPORT GROUPS. - Medication Discharge Medications: Ambulatory Orders NK [No Known Home Medication] 08/10/18 - Diagnosis (1) Depression Status: Chronic Qualifiers: Depression Type: unspecified Qualified Code(s): F32.9 - Major depressive disorder, single episode, unspecified (2) GERD (gastroesophageal reflux disease) Status: Chronic Qualifiers: Esophagitis presence: esophagitis presence not specified Qualified Code(s) : K21.9 - Gastro-esophageal reflux disease without esophagitis (3) Opioid dependence with withdrawal Status: Chronic (4) Uncomplicated sedative, hypnotic or anxiolytic withdrawal Status: Chronic (5) Nicotine dependence Status: Chronic Qualifiers: Nicotine product type: cigarettes Substance use status: uncomplicated Qualified Code(s): F17.210 - Nicotine dependence, cigarettes, uncomplicated - AMA Did Patient Leave Against Medical Advice: No
[2018-08-14] MEDS ORDERED: METHADONE HCL 10 MG TABLET (FOR DETOX USE ONLY) PO ONE (06:00)
== END 2018-08-13 11:17 | disposition home or self-care (01) | DRG 773 ==
LOC: YASAS 21:57 → Y3N 08-10 01:23
PROVIDERS: ADMIT Surgery; ATTEND Surgery
PROC: HZ2ZZZZ Detoxification Services for Substance Abuse Treatment (ICD-10-PCS; principal; 2018-08-10)
DX: F11.23 Opioid dependence with withdrawal (principal); F13.230 Sedative, hypnotic or anxiolytic dependence with withdrawal, uncomplicated; F17.220 Nicotine dependence, chewing tobacco, uncomplicated; F31.9 Bipolar disorder, unspecified; K21.9 Gastro-esophageal reflux disease without esophagitis; Z85.71 Personal history of Hodgkin lymphoma
CPT/HCPCS: 36415; 80053; 85027; 86593; Q0162

== ENCOUNTER 2022-11-26 13:26 | Inpatient (IN) | payer OTHER ==
[2022-11-26 14:29] VITALS: BMI 32.1
[2022-11-26] MEDS ORDERED: IBUPROFEN 600 MG TABLET (FP) PO PRN (16:37)
[2022-11-26] MEDS ORDERED: MAG HYDROX/AL HYDROX/SIMETH 30 ML UNIT-DOSE CUP PO PRN (16:37)
[2022-11-26] MEDS ORDERED: guaiFENesin 600 MG TABLET.ER (FP) PO PRN (16:37)
[2022-11-26] MEDS ORDERED: cloNIDine HCL 0.1 MG TABLET PO PRN (16:37)
[2022-11-26] MEDS ORDERED: NALOXONE HCL 0.4 MG/ML VIAL IM PRN (16:37)
[2022-11-26] MEDS ORDERED: LOPERAMIDE HCL 2 MG CAPSULE PO PRN (16:37)
[2022-11-26] MEDS ORDERED: BISMUTH SUBSALICYLATE 524 MG/30 ML PO PRN (16:37)
[2022-11-26] MEDS ORDERED: DICYCLOMINE HCL 10 MG CAPSULE PO PRN (16:37)
[2022-11-26] MEDS ORDERED: ACETAMINOPHEN 325 MG TABLET (FP) PO PRN (16:37)
[2022-11-26] MEDS ORDERED: MAGNESIUM HYDROX 2400MG/30ML ORAL SUSPENSION 30 ML CUP PO PRN (16:37)
[2022-11-26] MEDS ORDERED: IBUPROFEN 400 MG TABLET (FP) PO PRN (16:37)
[2022-11-26] MEDS ORDERED: ONDANSETRON *ODT* 4 MG TABLET SL PRN (16:37)
[2022-11-26] MEDS ORDERED: methaDONE HCL 10 MG TABLET (FOR DETOX USE ONLY) PO ONE (16:37)
[2022-11-26] MEDS ORDERED: NALOXONE HCL (KLOXXADO) 8 MG SPRAY NS PRN (16:37)
[2022-11-26] MEDS ORDERED: BENZONATATE 200 MG CAPSULE PO PRN (16:37)
[2022-11-26] MEDS ORDERED: POLYETHYLENE GLYCOL (HEALTHYLAX) 3350 17 GM PACKET PO PRN (16:37)
[2022-11-26] MEDS ORDERED: diazePAM 5 MG TABLET ONE (17:40)
[2022-11-26] MEDS: diazePAM 5 MG TABLET PO SCH ×3 (17:41→23:07)
[2022-11-26] MEDS: hydrOXYzine PAMOATE 25 MG CAPSULE (FP) PO PRN (18:24)
[2022-11-26] MEDS: METHOCARBAMOL 500 MG TABLET PO PRN (18:24)
[2022-11-26] MEDS: THIAMINE HCL 100 MG TABLET (FP) PO SCH ×2 (22:41→23:08)
[2022-11-26] MEDS: MELATONIN 5 MG TABLETS PO SCH ×2 (22:41→23:08)
[2022-11-26] MEDS: diazePAM 5 MG TABLET PO PRN (23:27)
[2022-11-27] MEDS: diazePAM 5 MG TABLET PO SCH ×4 (05:58→22:47)
[2022-11-27] MEDS: PRENATAL VITAMINS W/ FOLIC ACID TABLET (FP) PO SCH (10:42)
[2022-11-27] MEDS: BUPRENORPHINE/NALOXONE 4 MG/1 MG FILM PACKET SL SCH ×2 (10:43→22:47)
[2022-11-27] MEDS: METHOCARBAMOL 500 MG TABLET PO PRN ×2 (10:44→23:01)
[2022-11-27] MEDS: hydrOXYzine PAMOATE 25 MG CAPSULE (FP) PO PRN (10:44)
[2022-11-27] MEDS: NICOTINE 10 MG CARTRIDGE (INHALER) IH PRN (17:59)
[2022-11-27] MEDS: MELATONIN 5 MG TABLETS PO SCH (22:47)
[2022-11-27] MEDS: THIAMINE HCL 100 MG TABLET (FP) PO SCH (22:47)
[2022-11-27] MEDS: BENZOCAINE/MENTHOL (CHLORASEPTIC ) LOZENGE MM PRN (23:01)
[2022-11-28] MEDS: diazePAM 5 MG TABLET PO SCH ×3 (06:00→23:16)
[2022-11-28] MEDS: NICOTINE 10 MG CARTRIDGE (INHALER) IH PRN ×2 (06:01→23:28)
[2022-11-28] MEDS: BENZOCAINE/MENTHOL (CHLORASEPTIC ) LOZENGE MM PRN ×2 (06:07→23:27)
[2022-11-28] MEDS: BUPRENORPHINE/NALOXONE 4 MG/1 MG FILM PACKET SL SCH ×2 (09:57→23:15)
[2022-11-28] MEDS: PRENATAL VITAMINS W/ FOLIC ACID TABLET (FP) PO SCH (09:57)
[2022-11-28] MEDS: METHOCARBAMOL 500 MG TABLET PO PRN (09:57)
[2022-11-28] MEDS ORDERED: methaDONE HCL 10 MG TABLET (FOR DETOX USE ONLY) PO ONE (10:00)
[2022-11-28] MEDS: MELATONIN 5 MG TABLETS PO SCH (22:55)
[2022-11-28] MEDS: THIAMINE HCL 100 MG TABLET (FP) PO SCH (22:55)
[2022-11-29] MEDS: diazePAM 5 MG TABLET PO SCH ×3 (05:46→17:59)
[2022-11-29] MEDS: PRENATAL VITAMINS W/ FOLIC ACID TABLET (FP) PO SCH (11:25)
[2022-11-29] MEDS: BUPRENORPHINE/NALOXONE 4 MG/1 MG FILM PACKET SL SCH ×2 (11:26→22:48)
[2022-11-29] MEDS: hydrOXYzine PAMOATE 25 MG CAPSULE (FP) PO PRN (11:26)
[2022-11-29] MEDS: diazePAM 5 MG TABLET PO PRN (11:32)
[2022-11-29] MEDS: METHOCARBAMOL 500 MG TABLET PO PRN (11:42)
[2022-11-29] MEDS: BENZOCAINE/MENTHOL (CHLORASEPTIC ) LOZENGE MM PRN (15:02)
[2022-11-29] MEDS: THIAMINE HCL 100 MG TABLET (FP) PO SCH (22:48)
[2022-11-29] MEDS: MELATONIN 5 MG TABLETS PO SCH (22:48)
[2022-11-30] MEDS ORDERED: diazePAM 5 MG TABLET PO ONE (06:00)
[2022-11-30] MEDS ORDERED: methaDONE HCL 10 MG TABLET (FOR DETOX USE ONLY) PO ONE (10:00)
[2022-11-30] MEDS: PRENATAL VITAMINS W/ FOLIC ACID TABLET (FP) PO SCH (10:50)
[2022-11-30] MEDS: BUPRENORPHINE/NALOXONE 4 MG/1 MG FILM PACKET SL SCH ×2 (11:00→21:56)
[2022-11-30] MEDS: METHOCARBAMOL 500 MG TABLET PO PRN ×2 (11:01→17:34)
[2022-11-30] MEDS: hydrOXYzine PAMOATE 25 MG CAPSULE (FP) PO PRN (11:01)
[2022-11-30] MEDS: THIAMINE HCL 100 MG TABLET (FP) PO SCH (21:55)
[2022-11-30] MEDS: MELATONIN 5 MG TABLETS PO SCH (21:56)
[2022-11-30] MEDS: NICOTINE 10 MG CARTRIDGE (INHALER) IH PRN (23:35)
[2022-12-01] MEDS: PRENATAL VITAMINS W/ FOLIC ACID TABLET (FP) PO SCH (10:56)
[2022-12-01] MEDS: METHOCARBAMOL 500 MG TABLET PO PRN (10:56)
[2022-12-01] MEDS: BUPRENORPHINE/NALOXONE 4 MG/1 MG FILM PACKET SL SCH ×2 (10:56→22:38)
[2022-12-01] MEDS: hydrOXYzine PAMOATE 25 MG CAPSULE (FP) PO PRN (10:56)
[2022-12-01] MEDS: THIAMINE HCL 100 MG TABLET (FP) PO SCH (22:39)
[2022-12-01] MEDS: MELATONIN 5 MG TABLETS PO SCH (22:39)
[2022-12-01] MEDS: NICOTINE 10 MG CARTRIDGE (INHALER) IH PRN (23:00)
[2022-12-02] MEDS: BUPRENORPHINE/NALOXONE 4 MG/1 MG FILM PACKET SL SCH ×2 (09:50→22:38)
[2022-12-02] MEDS: PRENATAL VITAMINS W/ FOLIC ACID TABLET (FP) PO SCH (09:50)
[2022-12-02] MEDS: MELATONIN 5 MG TABLETS PO SCH (22:38)
[2022-12-02] MEDS: THIAMINE HCL 100 MG TABLET (FP) PO SCH (22:38)
[2022-12-03] MEDS: PRENATAL VITAMINS W/ FOLIC ACID TABLET (FP) PO SCH (10:43)
[2022-12-03] MEDS: BUPRENORPHINE/NALOXONE 4 MG/1 MG FILM PACKET SL SCH ×2 (10:46→21:30)
[2022-12-03] MEDS: METHOCARBAMOL 500 MG TABLET PO PRN (21:30)
[2022-12-03] MEDS: THIAMINE HCL 100 MG TABLET (FP) PO SCH (21:30)
[2022-12-03] MEDS: MELATONIN 5 MG TABLETS PO SCH (21:37)
[2022-12-04] MEDS: METHOCARBAMOL 500 MG TABLET PO PRN (03:35)
[2022-12-04 06:41] VITALS: BP 123/65; PULSE 69; RESP 16; TEMP 97.3
[2022-12-04] MEDS: PRENATAL VITAMINS W/ FOLIC ACID TABLET (FP) PO SCH (09:52)
[2022-12-04] MEDS: BUPRENORPHINE/NALOXONE 4 MG/1 MG FILM PACKET SL SCH (09:52)
== END 2022-12-04 09:53 | disposition home or self-care (01) | DRG 773 ==
LOC: YASAS 13:26 → Y6N 16:40
PROVIDERS: ADMIT Allergy & Immunology; ATTEND Surgery
PROC: HZ2ZZZZ Detoxification Services for Substance Abuse Treatment (ICD-10-PCS; principal; 2022-11-26)
DX: F10.230 Alcohol dependence with withdrawal, uncomplicated (principal); F13.230 Sedative, hypnotic or anxiolytic dependence with withdrawal, uncomplicated; F11.20 Opioid dependence, uncomplicated; F17.210 Nicotine dependence, cigarettes, uncomplicated; I10 Essential (primary) hypertension; U07.1 COVID-19; M54.59 Other low back pain; G89.29 Other chronic pain; G47.00 Insomnia, unspecified; Z88.6 Allergy status to analgesic agent; Z59.00 Homelessness unspecified
CPT/HCPCS: 87635; 87811

== ENCOUNTER 2024-07-20 21:54 | Inpatient (IN) | payer OTHER ==
[2024-07-20 22:33] VITALS: BMI 39.9
[2024-07-20] MEDS ORDERED: methaDONE HCL 10 MG TABLET (FOR DETOX USE ONLY) PO PRN (22:55)
[2024-07-20] MEDS ORDERED: BENZONATATE 200 MG CAPSULE PO PRN (22:56)
[2024-07-20] MEDS ORDERED: MAG HYDROX/AL HYDROX/SIMETH 30 ML UNIT-DOSE CUP PO PRN (22:56)
[2024-07-20] MEDS ORDERED: BENZOCAINE/MENTHOL (CHLORASEPTIC ) LOZENGE MM PRN (22:56)
[2024-07-20] MEDS ORDERED: POLYETHYLENE GLYCOL (HEALTHYLAX) 3350 17 GM PACKET PO PRN (22:56)
[2024-07-20] MEDS ORDERED: DICYCLOMINE HCL 10 MG CAPSULE PO PRN (22:56)
[2024-07-20] MEDS ORDERED: NICOTINE POLACRILEX 2 MG LOZENGE BC PRN (22:56)
[2024-07-20] MEDS ORDERED: MAGNESIUM HYDROX 2400MG/30ML ORAL SUSPENSION 30 ML CUP PO PRN (22:56)
[2024-07-20] MEDS ORDERED: NALOXONE (NARCAN) HCL 4 MG/0.1 ML SPRAY NS PRN (22:56)
[2024-07-20] MEDS ORDERED: guaiFENesin 600 MG TABLET.ER (FP) PO PRN (22:56)
[2024-07-20] MEDS ORDERED: ONDANSETRON *ODT* 4 MG TABLET SL PRN (22:56)
[2024-07-20] MEDS ORDERED: diazePAM 5 MG TABLET ONE (23:50)
[2024-07-20] MEDS: diazePAM 5 MG TABLET PO SCH (23:54)
[2024-07-21] MEDS: PRENATAL VITAMINS W/ FOLIC ACID TABLET (FP) PO SCH (10:14)
[2024-07-21] MEDS: diazePAM 5 MG TABLET PO ONE (11:16)
[2024-07-21] MEDS: diazePAM 5 MG TABLET PO PRN (14:05)
[2024-07-21 17:20] LABS: HEMATOCRIT 42.3 % (35.4-49); HEMOGLOBIN 13.4 GM/dL (11.7-16.9); MCH 26.8 pg (25.7-33.7); MCHC 31.7 g/dl (32.0-35.9); MEAN CELL VOLUME 84.7 fl (80-96); MEAN PLT VOLUME 7.9 fl (7.5-11.1); PLATELET COUNT 342 10^3/uL (134-434); RBC 4.99 M/mm3 (4.00-5.60); RDW 15.1 % (11.9-15.9); WHITE BLOOD COUNT 4.4 K/mm3 (4.0-10.0)
[2024-07-21 17:24] LABS: CHLORIDE 103 mmol/L (98-107); POTASSIUM 4.4 mmol/L (3.5-5.1); SODIUM 139 mmol/L (136-145)
[2024-07-21 17:27] LABS: ALBUMIN 3.8 g/dl (3.4-5.0); ANION GAP 5 mmol/L (4-13); BLOOD UREA NITROGEN 12.2 mg/dL (7-18); CALCIUM 9.4 mg/dL (8.5-10.1); CO2 30 mmol/L (21-32); GLUCOSE,RANDOM 112 mg/dL (74-106)
[2024-07-21 17:30] LABS: SGOT/AST 19 U/L (15-37); SGPT/ALT 20 U/L (13-61)
[2024-07-21 17:32] LABS: BILIRUBIN,TOTAL 0.4 mg/dL (0.2-1); TOT PROT 7.6 g/dl (6.4-8.2)
[2024-07-21 17:33] LABS: ALK PHOS 62 U/L (45-117)
[2024-07-21] MEDS: cloNIDine HCL 0.1 MG TABLET PO PRN (17:49)
[2024-07-21] MEDS: NICOTINE POLACRILEX 2 MG GUM BUC PRN (17:51)
[2024-07-21] MEDS: AMOXICILLIN 500 MG CAPSULE (FP) PO SCH (22:03)
[2024-07-21] MEDS: MELATONIN 5 MG TABLETS PO SCH (22:03)
[2024-07-21] MEDS: THIAMINE 100 MG TABLET PO SCH (22:03)
[2024-07-22] MEDS: P-EPHED 60MG/TRIPROLIDI 2.5MG TABLET PO PRN (00:02)
[2024-07-22] MEDS: hydrOXYzine PAMOATE 25 MG CAPSULE (FP) PO ONE (00:02)
[2024-07-22] MEDS: diazePAM 5 MG TABLET PO SCH (06:00)
[2024-07-22] MEDS: methaDONE HCL 10 MG TABLET (FOR DETOX USE ONLY) PO ONE (10:16)
[2024-07-22] MEDS: ACETAMINOPHEN 325 MG TABLET (FP) PO PRN (13:46)
[2024-07-22] MEDS: hydrOXYzine PAMOATE 25 MG CAPSULE (FP) PO PRN (15:42)
[2024-07-23] MEDS: diazePAM 5 MG TABLET PO SCH (05:52)
[2024-07-23] MEDS: METHOCARBAMOL 500 MG TABLET PO SCH (13:59)
[2024-07-24] MEDS: diazePAM 5 MG TABLET PO ONE (05:57)
[2024-07-24] MEDS ORDERED: diazePAM 5 MG TABLET PO ONE (06:00)
[2024-07-24] MEDS: methaDONE HCL 10 MG TABLET (FOR DETOX USE ONLY) PO ONE (09:48)
[2024-07-24] MEDS: LOPERAMIDE HCL 2 MG CAPSULE PO PRN (12:23)
[2024-07-24] MEDS ORDERED: ACAMPROSATE CALCIUM 333 MG TABLET.DR PO SCH (14:00)
[2024-07-24] MEDS: BACLOFEN 10 MG TABLET (FP) PO ONE (18:48)
[2024-07-25 09:23] VITALS: BP 133/73; PULSE 86; RESP 18; TEMP 97.7
== END 2024-07-25 10:14 | disposition home or self-care (01) | DRG 773 ==
LOC: YASAS 21:54 → Y6N 23:28
PROVIDERS: ADMIT Allergy & Immunology; ATTEND Allergy & Immunology
PROC: HZ2ZZZZ Detoxification Services for Substance Abuse Treatment (ICD-10-PCS; principal; 2024-07-20)
DX: F11.23 Opioid dependence with withdrawal (principal); F13.230 Sedative, hypnotic or anxiolytic dependence with withdrawal, uncomplicated; F10.10 Alcohol abuse, uncomplicated; F17.213 Nicotine dependence, cigarettes, with withdrawal; F19.282 Other psychoactive substance dependence with psychoactive substance-induced sleep disorder; F19.24 Other psychoactive substance dependence with psychoactive substance-induced mood disorder; I10 Essential (primary) hypertension; K21.9 Gastro-esophageal reflux disease without esophagitis; M54.50 Low back pain, unspecified; G89.29 Other chronic pain; Z87.19 Personal history of other diseases of the digestive system; Z59.00 Homelessness unspecified
CPT/HCPCS: 36415; 80053; 80305; 80307; 85027; 86780; 93005; 93010; J0475